=== PATIENT | female | born 1980 | race American Indian/Alaskan Native ===

== ENCOUNTER 2017-06-10 07:50 | Emergency (ER) | payer BC ==
[2017-06-10] MEDS ORDERED: TESSALON PERLES PO ONE (11:01)
[2017-06-10] MEDS ORDERED: LIDOCAINE VISCOUS 2% PO ONE (11:01)
--- NOTE | 2017-06-10 11:24 | XRay Report ---
XRAY CHEST TWO VIEWS: 06/10/17 07:50:00 CLINICAL: Cough. COMPARISON: 07/22/16 FINDINGS: Normal heart and pulmonary vasculature. The lungs are normally expanded and clear.The bones and soft tissues are unremarkable. IMPRESSION: Normal chest.
[2017-06-10] MEDS ORDERED: ZESTRIL PO ONE (12:02)
--- NOTE | 2017-06-10 12:11 | Emergency Department Report ---
- General Chief Complaint: Upper Respiratory Infection Stated Complaint: FLU LIKE SYMPTOMS Time Seen by Provider: 06/10/17 11:01 Source: patient Mode of arrival: Ambulatory Limitations: No Limitations - History of Present Illness Initial Comments: This is a 37-year-old female nontoxic, well nourished in appearance, no acute signs of distress presents to the ED with c/o of productive cough, nasal congestion, rhinorrhea, sore throat, body aches, and frontal sinus pain 3 days. Patient discussed productive cough is yellow mucus production. Patient denies any recent travels, long car rides, recent hospital stays. She denies any calf pain, calf tenderness. Patient denies any chest pain, shortness of breath, difficulty breathing, headache, stiff neck, nausea, vomiting, fever, chills, blurry vision. Patient describes frontal sinus pain as aching and congestion. Patient stated allergies to iodine and shellfish. PMH includes hypertension, asthma, GERD, headaches. Patient stated has been out of her blood pressure medication Lisinopril 20 mg for about 2 months. MD Complaint: cough, sore throat, rhinorrhea, nasal congestion, sinus pain -: days(s) (3) Severity: mild Severity scale (0 -10): 8 Quality: aching Consistency: constant Improves With: nothing Worsens With: nothing Associated Symptoms: headache (frontal sinus pain), rhinorrhea, nasal congestion , cough. denies: fever, chills, myalgias, diaphoresis, sore throat, stiff neck , chest pain, shortness of breath, abdominal pain, nausea, vomiting, diarrhea, dysuria, rash, confusion, right sweats, weight loss, epistaxis, hoarseness, ear pain Treatments Prior to Arrival: none - Related Data Home Medications Medication Instructions Recorded Confirmed Last Taken Aspirin [Aspirin] 81 mg PO BID 07/23/16 07/23/16 3 Days Ago ~07/20/16 Gabapentin [Neurontin] 300 mg PO BID 07/23/16 07/23/16 3 Days Ago ~07/20/16 HYDROcodone/APAP 10-325 [[place] 1 tab PO Q4HR PRN 07/23/16 07/23/16 3 Days Ago 10-325 mg TAB] ~07/20/16 Previous Rx's Medication Instructions Recorded Last Taken Type Lisinopril [Zestril TAB] 20 mg PO QDAY #30 tablet 07/20/16 1 Day Ago Rx ~07/22/16 Amoxicillin/K Clav Tab [Augmentin 1 tab PO Q12HR #20 tab 06/10/17 Unknown Rx 875 mg] Benzonatate [Tessalon Perle] 100 mg PO Q6H PRN #20 capsule 06/10/17 Unknown Rx Lisinopril [Zestril] 20 mg PO DAILY #30 tablet 06/10/17 Unknown Rx Nystas/Diphen/Xyl Visc/Mylanta 30 ml MM Q4H PRN 10 Days ml 06/10/17 Unknown Rx [Magic Mouthwash] Allergies Allergy/AdvReac Type Severity Reaction Status Date / Time Iodine and Iodide Containing Allergy Shortness Verified 12/07/15 14:17 Produc of Breath shellfish derived Allergy Shortness Verified 12/07/15 14:17 of Breath ED Review of Systems ROS: Stated complaint: FLU LIKE SYMPTOMS Other details as noted in HPI Constitutional: denies: chills, fever Eyes: denies: eye pain, eye discharge, vision change ENT: denies: ear pain, throat pain Respiratory: cough. denies: shortness of breath, wheezing Cardiovascular: denies: chest pain, palpitations Endocrine: no symptoms reported Gastrointestinal: denies: abdominal pain, nausea, diarrhea Genitourinary: denies: urgency, dysuria, discharge Musculoskeletal: denies: back pain, joint swelling, arthralgia Skin: denies: rash, lesions Neurological: denies: headache, weakness, paresthesias Psychiatric: denies: anxiety, depression Hematological/Lymphatic: denies: easy bleeding, easy bruising ED Past Medical Hx - Past Medical History Previous Medical History?: Yes Hx Hypertension: Yes Hx Congestive Heart Failure: No Hx Diabetes: No Hx GERD: Yes (NO MEDS) Hx Renal Disease: No Hx Sickle Cell Disease: No Hx Arthritis: Yes Hx Headaches / Migraines: Yes (MIGRAINES) Hx Seizures: No Hx Asthma: Yes Hx COPD: No - Surgical History Past Surgical History?: Yes Additional Surgical History: x 3, knee surgery right - Social History Smoking Status: Never Smoker Substance Use Type: None - Medications Home Medications: Home Medications Medication Instructions Recorded Confirmed Last Taken Type Lisinopril [Zestril TAB] 20 mg PO QDAY #30 tablet 07/20/16 07/23/16 1 Day Ago Rx ~07/22/16 Aspirin [Aspirin] 81 mg PO BID 07/23/16 07/23/16 3 Days Ago History ~07/20/16 Gabapentin [Neurontin] 300 mg PO BID 07/23/16 07/23/16 3 Days Ago History ~07/20/16 HYDROcodone/APAP 10-325 [[facility] 1 tab PO Q4HR PRN 07/23/16 07/23/16 3 Days Ago History 10-325 mg TAB] ~07/20/16 Amoxicillin/K Clav Tab [Augmentin 1 tab PO Q12HR #20 tab 06/10/17 Unknown Rx 875 mg] Benzonatate [Tessalon Perle] 100 mg PO Q6H PRN #20 capsule 06/10/17 Unknown Rx Lisinopril [Zestril] 20 mg PO DAILY #30 tablet 06/10/17 Unknown Rx Nystas/Diphen/Xyl Visc/Mylanta 30 ml MM Q4H PRN 10 Days ml 06/10/17 Unknown Rx [Magic Mouthwash] ED Physical Exam - General Limitations: No Limitations General appearance: alert, in no apparent distress - Head Head exam: Present: atraumatic, normocephalic, normal inspection - Eye Eye exam: Present: normal appearance, PERRL, EOMI. Absent: scleral icterus, conjunctival injection, nystagmus, periorbital swelling, periorbital tenderness Pupils: Present: normal accommodation - ENT ENT exam: Present: mucous membranes moist, TM's normal bilaterally, normal external ear exam - Expanded ENT Exam Expanded Ear exam: Present: normal external inspection Mouth exam: Present: normal external inspection, tongue normal. Absent: drooling, trismus, muffled voice, tongue elevation, laceration Teeth exam: Present: normal inspection Throat exam: Positive: tonsillar erythema, tonsillomegaly (2+), tonsillar exudate, other (Uvula midline. No abscess or swelling noted. ). Negative: R peritonsillar mass, L peritonsillar mass - Neck Neck exam: Present: normal inspection, full ROM. Absent: tenderness, meningismus, lymphadenopathy, thyromegaly - Respiratory Respiratory exam: Present: normal lung sounds bilaterally. Absent: respiratory distress, wheezes, rales, rhonchi, stridor, chest wall tenderness, accessory muscle use, decreased breath sounds, prolonged expiratory - Cardiovascular Cardiovascular Exam: Present: regular rate, normal rhythm, normal heart sounds. Absent: irregular rhythm, systolic murmur, diastolic murmur, rubs, gallop - GI/Abdominal GI/Abdominal exam: Present: soft, normal bowel sounds. Absent: distended, tenderness, guarding, rebound, rigid, diminished bowel sounds - Rectal Rectal exam: Present: deferred - Extremities Exam Extremities exam: Present: normal inspection, full ROM, normal capillary refill. Absent: tenderness, pedal edema, joint swelling, calf tenderness - Back Exam Back exam: Present: normal inspection, full ROM. Absent: tenderness, CVA tenderness (R), CVA tenderness (L), muscle spasm, paraspinal tenderness, vertebral tenderness, rash noted - Neurological Exam Neurological exam: Present: alert, oriented X3, CN II-XII intact, normal gait, reflexes normal - Psychiatric Psychiatric exam: Present: normal affect, normal mood - Skin Skin exam: Present: warm, dry, intact, normal color. Absent: rash - Other Other exam information: Positive frontal sinus tenderness. ED Course Vital Signs 06/10/17 07:59 Temperature 98.5 F Pulse Rate 98 H Respiratory 18 Rate Blood Pressure 174/109 O2 Sat by Pulse 100 Oximetry - Reevaluation(s) Reevaluation #1: 06/10/17 12:11 Patient is speaking in full sentences with no signs of distress noted. ED Medical Decision Making - Medical Decision Making 37-year-old female that presents with upper respiratory infection, sinusitis and tonsillitis with exudate. Patient is stable and was examined by me. Negative influenza swab. Chest x-ray has been obtained and dictated by radiologist with normal exam. Patient is notified of x-ray results with no questions noted by the patient. Patient received viscous lidocaine, Tessalon Perle was placed that his symptoms of cough and sore throat has improved subsided. Patient treated with Augmentin at discharge. Patient received a dose of Lisinopril in the ED as she stated ran out of her medications for 2 months. Patient is also discharge with Lisinopril. Patient was instructed Follow-up with a primary care doctor in 3-5 days or if symptoms worsen and continue return to emergency room as soon as possible. At time time of discharge, the patient does not seem toxic or ill in appearance. No acute signs of distress noted. Patient agrees to discharge treatment plan of care. No further questions noted by the patient. Critical care attestation.: If time is entered above; I have spent that time in minutes in the direct care of this critically ill patient, excluding procedure time. ED Disposition Clinical Impression: Tonsillitis with exudate Upper respiratory infection Qualifiers: URI type: unspecified URI Qualified Code(s): J06.9 - Acute upper respiratory infection, unspecified Sinusitis Qualifiers: Sinusitis location: frontal Chronicity: acute Recurrence: non-recurrent Qualified Code(s): J01.10 - Acute frontal sinusitis, unspecified Hypertension Qualifiers: Hypertension type: unspecified Qualified Code(s): I10 - Essential (primary) hypertension Disposition: - TO HOME OR SELFCARE Is pt being admited?: No Does the pt Need Aspirin: No Condition: Stable Instructions: Upper Respiratory Infection (ED), Tonsillitis (ED), Amoxicillin/ Clavulanate Potassium (By mouth), Benzonatate (By mouth), Hypertension (ED) Additional Instructions: Follow-up with a primary care doctor in 3-5 days or if symptoms worsen and continue return to emergency room as soon as possible. Keep a daily dairy of your blood pressure and present it to your primary care doctor. Rest and increase hydration as much as possible. Prescriptions: Amoxicillin/K Clav Tab [Augmentin 875 mg] 1 tab PO Q12HR #20 tab Benzonatate [Tessalon Perle] 100 mg PO Q6H PRN #20 capsule PRN Reason: Cough Lisinopril [Zestril] 20 mg PO DAILY #30 tablet Nystas/Diphen/Xyl Visc/Mylanta [Magic Mouthwash] 30 ml MM Q4H PRN 10 Days ml PRN Reason: Sore Throat Referrals: VAL BARKER MD [Primary Care Provider] - 3-5 Days PRIMARY CARE, [Referring] - 3-5 Days VAL ROBERTSON MD [Staff Physician] - 3-5 Days [facility] [Outside] - 3-5 Days Forms: Work/School Release Form(ED)
[2017-06-10 13:23] VITALS: BP 174/97
[2017-06-10] MEDS ORDERED: MOTRIN PO ONE ×2 (13:31→13:35)
== END 2017-06-10 13:29 | disposition home or self-care (01) ==
LOC: ED 07:50
DX: J01.10 Acute frontal sinusitis, unspecified (principal); J06.9 Acute upper respiratory infection, unspecified; J03.90 Acute tonsillitis, unspecified; I10 Essential (primary) hypertension; K21.9 Gastro-esophageal reflux disease without esophagitis; G43.909 Migraine, unspecified, not intractable, without status migrainosus; J45.909 Unspecified asthma, uncomplicated; Z79.82 Long term (current) use of aspirin
CPT/HCPCS: 71046; 87116; 87400; 87430; 99283

== ENCOUNTER 2018-06-18 13:48 | Emergency (ER) | payer BC ==
[2018-06-18 13:54] VITALS: BP 151/106
[2018-06-18] MEDS ORDERED: IBUPROFEN PO ONE (14:05)
--- NOTE | 2018-06-18 14:23 | Emergency Department Report ---
Abscess Boil HPI - HPI Chief Complaint: Extremity Injury, Upper Stated Complaint: (L) HAND MIDDLE FINGER INFECTION Time Seen by Provider: 06/18/18 14:01 Duration: 2 Days Location: Upper Extremity Severity: Mild History: Yes Pain, No Fever, No Purulent Drainage, No Numbness, No Foreign Body, No Previous History, No Insect Bite HPI: This is a 38-year-old female nontoxic, well nourished in appearance, no acute signs of distress presents to the ED with c/o of left paronychia and the middle finger. Patient denies any trauma. Denies any posterior drainage. Denies any fever, chills, nausea vomiting has been instructed by. Stated allergies to iodine and shellfish with past medical history of asthma, GERD and arthritis with hypertension. Home Medications: Home Medications Medication Instructions Recorded Confirmed Last Taken Aspirin 81 mg PO BID 07/23/16 07/23/16 3 Days Ago ~07/20/16 Gabapentin [Neurontin] 300 mg PO BID 07/23/16 07/23/16 3 Days Ago ~07/20/16 HYDROcodone/APAP 10-325 [[place] 1 tab PO Q4HR PRN 07/23/16 07/23/16 3 Days Ago 10-325 mg TAB] ~07/20/16 Previous Rx's Medication Instructions Recorded Last Taken Type Lisinopril [Zestril TAB] 20 mg PO QDAY #30 tablet 07/20/16 1 Day Ago Rx ~07/22/16 Amoxicillin/K Clav Tab [Augmentin 1 tab PO Q12HR #20 tab 06/10/17 Unknown Rx 875 mg] Benzonatate [Tessalon Perle] 100 mg PO Q6H PRN #20 capsule 06/10/17 Unknown Rx Lisinopril [Zestril] 20 mg PO DAILY #30 tablet 06/10/17 Unknown Rx Nystas/Diphen/Xyl Visc/Mylanta 30 ml MM Q4H PRN 10 Days ml 06/10/17 Unknown Rx [Magic Mouthwash] Acetaminophen/Codeine [Tylenol 1 tab PO Q6H PRN #12 tab 06/18/18 Unknown Rx /Codeine # 3 tab] Sulfamethoxazole/Trimethoprim 1 each PO BID #14 tablet 06/18/18 Unknown Rx [Bactrim DS TAB] Allergies/Adverse Reactions: Allergies Allergy/AdvReac Type Severity Reaction Status Date / Time Iodine and Iodide Containing Allergy Shortness Verified 06/18/18 13:52 Produc of Breath shellfish derived Allergy Shortness Verified 06/18/18 13:52 of Breath ED Review of Systems ROS: Stated complaint: (L) HAND MIDDLE FINGER INFECTION Other details as noted in HPI Constitutional: denies: chills, fever Eyes: denies: eye pain, eye discharge, vision change ENT: denies: ear pain, throat pain Respiratory: denies: cough, shortness of breath, wheezing Cardiovascular: denies: chest pain, palpitations Endocrine: no symptoms reported Gastrointestinal: denies: abdominal pain, nausea, diarrhea Genitourinary: denies: urgency, dysuria, discharge Musculoskeletal: denies: back pain, joint swelling, arthralgia Skin: denies: rash, lesions Neurological: denies: headache, weakness, paresthesias Psychiatric: denies: anxiety, depression Hematological/Lymphatic: denies: easy bleeding, easy bruising ED Past Medical Hx - Past Medical History Hx Hypertension: Yes Hx Congestive Heart Failure: No Hx Diabetes: No Hx GERD: Yes Hx Renal Disease: No Hx Sickle Cell Disease: No Hx Arthritis: Yes Hx Headaches / Migraines: Yes Hx Seizures: No Hx Asthma: Yes Hx COPD: No - Surgical History Additional Surgical History: x 3, knee surgery right - Social History Smoking Status: Never Smoker Substance Use Type: None - Medications Home Medications: Home Medications Medication Instructions Recorded Confirmed Last Taken Type Lisinopril [Zestril TAB] 20 mg PO QDAY #30 tablet 07/20/16 07/23/16 1 Day Ago Rx ~07/22/16 Aspirin 81 mg PO BID 07/23/16 07/23/16 3 Days Ago History ~07/20/16 Gabapentin [Neurontin] 300 mg PO BID 07/23/16 07/23/16 3 Days Ago History ~07/20/16 HYDROcodone/APAP 10-325 [[place] 1 tab PO Q4HR PRN 07/23/16 07/23/16 3 Days Ago History 10-325 mg TAB] ~07/20/16 Amoxicillin/K Clav Tab [Augmentin 1 tab PO Q12HR #20 tab 06/10/17 Unknown Rx 875 mg] Benzonatate [Tessalon Perle] 100 mg PO Q6H PRN #20 capsule 06/10/17 Unknown Rx Lisinopril [Zestril] 20 mg PO DAILY #30 tablet 06/10/17 Unknown Rx Nystas/Diphen/Xyl Visc/Mylanta 30 ml MM Q4H PRN 10 Days ml 06/10/17 Unknown Rx [Magic Mouthwash] Acetaminophen/Codeine [Tylenol 1 tab PO Q6H PRN #12 tab 06/18/18 Unknown Rx /Codeine # 3 tab] Sulfamethoxazole/Trimethoprim 1 each PO BID #14 tablet 06/18/18 Unknown Rx [Bactrim DS TAB] ED Abscess Boil Physical Exam - Exam General: Vital signs noted. No distress. Alert and acting appropriately. Size: 1 cm Exam: Yes Tenderness, Yes Surrounding Cellulites/Erythema, Yes Normal Neurologic Exam, Yes Normal Circulation, No Fluctuance, No Lymphangitis, No Crepitation, No Heart Murmur I & D Note - I & D Note I & D Note: Under sterile field, I used Betadine to cleanse the area. I then used an 11 blade to separate the cuticle from the nail bed. About 0.5 mL's of purulent drainage has been noted. I did have patient soak finger with soap and warm water. A sterile 4 x 4 with tape has been applied as dressing. Bleeding is under control. Patient tolerated the procedure well with no signs of distress noted. ED Course Vital Signs 06/18/18 13:52 Temperature 98.4 F Pulse Rate 107 H Respiratory 18 Rate Blood Pressure 151/106 O2 Sat by Pulse 97 Oximetry - Reevaluation(s) Reevaluation #1: 06/18/18 14:26 Patient is speaking in full sentences with no signs of distress noted. Critical care attestation.: If time is entered above; I have spent that time in minutes in the direct care of this critically ill patient, excluding procedure time. ED Medical Decision Making - Medical Decision Making This is a 38-year-old female that presents with paronychia. Patient is stable and was examined by me. This is incision and drainage and has been performed and patient tolerated well. A sterile dressing has been applied. Patient was educated on proper wound care. Patient is discharged with Bactrim and Tylenol with codeine and was instructed not to operate any machinery while taking Tylenol with codeine due to drowsiness. Patient was instructed to refer to Follow-up with a primary care doctor in 3-5 days or if symptoms worsen and continue return to emergency room as soon as possible. At time of discharge, the patient does not seem toxic or ill in appearance. No acute signs of distress noted. Patient agrees to discharge treatment plan of care. No further questions noted by the patient. ED Disposition Clinical Impression: Encounter for incision and drainage procedure Paronychia of finger Qualifiers: Laterality: left Qualified Code(s): L03.012 - Cellulitis of left finger Disposition: - TO HOME OR SELFCARE Is pt being admited?: No Does the pt Need Aspirin: No Condition: Stable Instructions: Paronychia (ED), Acetaminophen/Codeine (By mouth) Prescriptions: Acetaminophen/Codeine [Tylenol /Codeine # 3 tab] 1 tab PO Q6H PRN #12 tab PRN Reason: Pain , Severe (7-10) Sulfamethoxazole/Trimethoprim [Bactrim DS TAB] 1 each PO BID #14 tablet Referrals: ORESTES LAMB MD [Staff Physician] - 3-5 Days PRIMARY [facility] [Referring] - 3-5 Days VAL ROBERTSON MD [Staff Physician] - 3-5 Days [facility] [Outside] - 3-5 Days Forms: Work/School Release Form(ED)
== END 2018-06-18 14:40 | disposition home or self-care (01) ==
LOC: ED 13:48
DX: L03.012 Cellulitis of left finger (principal); I10 Essential (primary) hypertension; K21.9 Gastro-esophageal reflux disease without esophagitis; M19.90 Unspecified osteoarthritis, unspecified site; G43.909 Migraine, unspecified, not intractable, without status migrainosus; J45.909 Unspecified asthma, uncomplicated

== ENCOUNTER 2018-07-25 01:27 | Emergency (ER) | payer BC ==
[2018-07-25] MEDS ORDERED: ASPIRIN PO ONE (01:55)
[2018-07-25 02:13] LABS: Mean Corpuscular HGB Conc 32 % (30-34); Mean Corpuscular Volume 87 fl (79-97); Platelet Count 299 K/mm3 (140-440); Red Blood Count 4.27 M/mm3 (3.65-5.03); Red Cell Distribution Width 16.5 % (13.2-15.2)
[2018-07-25 02:17] LABS: Anisocytosis 1+; Basophils % (Manual) 0 % (0.0-1.8); Ovalocytes 1+; Total Cells Counted 100
[2018-07-25 02:30] LABS: BUN/Creatinine Ratio 17; Blood Urea Nitrogen 10 mg/dL (7-17); Calcium 9.1 mg/dL (8.4-10.2); Hemolysis Index 12
[2018-07-25] MEDS ORDERED: ALUM-MAG HYDROX-SIMETH 200-200-20MG/5ML PO ONE (03:02)
[2018-07-25] MEDS ORDERED: LIDOCAINE VISCOUS 2% PO ONE (03:02)
--- NOTE | 2018-07-25 03:06 | Emergency Department Report ---
ED Abdominal Pain HPI - General Chief Complaint: Chest Pain Stated Complaint: CHEST PAIN/ABDOMINAL & BACK PAIN Time Seen by Provider: 07/25/18 02:45 Source: patient, family Mode of arrival: Ambulatory Limitations: No Limitations - History of Present Illness Initial Comments: 38-year-old female presents to ED with complaint of chest and abdominal pain. Patient reports onset approximately 2 hours ago while asleep. Patient states she was awakened from her sleep by periumbilical pain that then radiated up into her chest. She also reports back pain. Patient states she has a history of acid reflux, and a chili dog prior to going to bed. Denies shortness of breath. Reports nausea, no vomiting. Patient states chest pain is resolved, however still has mild abdominal pain. MD Complaint: abdominal pain -: hour(s) (2) Location: periumbilical, epigastric Radiation: back, chest Migration to: no migration Severity: mild Severity scale (0 -10): 10 Quality: other (pt unable to describe) Consistency: now resolved Improves With: nothing Worsens With: nothing Associated Symptoms: nausea. denies: vomiting, fever - Related Data Home Medications Medication Instructions Recorded Confirmed Last Taken Aspirin 81 mg PO BID 07/23/16 07/23/16 3 Days Ago ~07/20/16 Gabapentin [Neurontin] 300 mg PO BID 07/23/16 07/23/16 3 Days Ago ~07/20/16 HYDROcodone/APAP 10-325 [[place] 1 tab PO Q4HR PRN 07/23/16 07/23/16 3 Days Ago 10-325 mg TAB] ~07/20/16 Previous Rx's Medication Instructions Recorded Last Taken Type Lisinopril [Zestril TAB] 20 mg PO QDAY #30 tablet 07/20/16 1 Day Ago Rx ~07/22/16 Amoxicillin/K Clav Tab [Augmentin 1 tab PO Q12HR #20 tab 06/10/17 Unknown Rx 875 mg] Benzonatate [Tessalon Perle] 100 mg PO Q6H PRN #20 capsule 06/10/17 Unknown Rx Lisinopril [Zestril] 20 mg PO DAILY #30 tablet 06/10/17 Unknown Rx Nystas/Diphen/Xyl Visc/Mylanta 30 ml MM Q4H PRN 10 Days ml 06/10/17 Unknown Rx [Magic Mouthwash] Acetaminophen/Codeine [Tylenol 1 tab PO Q6H PRN #12 tab 06/18/18 Unknown Rx /Codeine # 3 tab] Fluconazole [Diflucan TAB] 150 mg PO ONCE #1 tablet 06/18/18 Unknown Rx Sulfamethoxazole/Trimethoprim 1 each PO BID #14 tablet 06/18/18 Unknown Rx [Bactrim DS TAB] Dicyclomine [Bentyl] 20 mg PO QID PRN #20 tablet 07/25/18 Unknown Rx Allergies Allergy/AdvReac Type Severity Reaction Status Date / Time Iodine and Iodide Containing Allergy Shortness Verified 06/18/18 13:52 Produc of Breath shellfish derived Allergy Shortness Verified 06/18/18 13:52 of Breath ED Review of Systems ROS: Stated complaint: CHEST PAIN/ABDOMINAL & BACK PAIN Other details as noted in HPI Comment: All other systems reviewed and negative Constitutional: denies: chills, fever Respiratory: denies: shortness of breath Cardiovascular: chest pain Gastrointestinal: abdominal pain, nausea. denies: vomiting, diarrhea Musculoskeletal: back pain ED Past Medical Hx - Past Medical History Hx Hypertension: Yes Hx Congestive Heart Failure: No Hx Diabetes: No Hx GERD: Yes Hx Renal Disease: No Hx Sickle Cell Disease: No Hx Arthritis: Yes Hx Headaches / Migraines: Yes Hx Seizures: No Hx Asthma: Yes Hx COPD: No - Surgical History Additional Surgical History: x 3, knee surgery right - Social History Smoking Status: Never Smoker Substance Use Type: None - Medications Home Medications: Home Medications Medication Instructions Recorded Confirmed Last Taken Type Lisinopril [Zestril TAB] 20 mg PO QDAY #30 tablet 07/20/16 07/23/16 1 Day Ago Rx ~07/22/16 Aspirin 81 mg PO BID 07/23/16 07/23/16 3 Days Ago History ~07/20/16 Gabapentin [Neurontin] 300 mg PO BID 07/23/16 07/23/16 3 Days Ago History ~07/20/16 HYDROcodone/APAP 10-325 [[place] 1 tab PO Q4HR PRN 07/23/16 07/23/16 3 Days Ago History 10-325 mg TAB] ~07/20/16 Amoxicillin/K Clav Tab [Augmentin 1 tab PO Q12HR #20 tab 06/10/17 Unknown Rx 875 mg] Benzonatate [Tessalon Perle] 100 mg PO Q6H PRN #20 capsule 06/10/17 Unknown Rx Lisinopril [Zestril] 20 mg PO DAILY #30 tablet 06/10/17 Unknown Rx Nystas/Diphen/Xyl Visc/Mylanta 30 ml MM Q4H PRN 10 Days ml 06/10/17 Unknown Rx [Magic Mouthwash] Acetaminophen/Codeine [Tylenol 1 tab PO Q6H PRN #12 tab 06/18/18 Unknown Rx /Codeine # 3 tab] Fluconazole [Diflucan TAB] 150 mg PO ONCE #1 tablet 06/18/18 Unknown Rx Sulfamethoxazole/Trimethoprim 1 each PO BID #14 tablet 06/18/18 Unknown Rx [Bactrim DS TAB] Dicyclomine [Bentyl] 20 mg PO QID PRN #20 tablet 07/25/18 Unknown Rx ED Physical Exam - General Limitations: No Limitations General appearance: alert, in no apparent distress, obese - Head Head exam: Present: atraumatic, normocephalic - Eye Eye exam: Present: normal appearance - ENT ENT exam: Present: mucous membranes moist - Neck Neck exam: Present: normal inspection - Respiratory Respiratory exam: Present: normal lung sounds bilaterally. Absent: respiratory distress - Cardiovascular Cardiovascular Exam: Present: regular rate, normal rhythm - GI/Abdominal GI/Abdominal exam: Present: soft, tenderness (periumbilical). Absent: distended - Extremities Exam Extremities exam: Present: normal inspection - Neurological Exam Neurological exam: Present: alert, oriented X3 - Psychiatric Psychiatric exam: Present: normal affect, normal mood - Skin Skin exam: Present: warm, dry, intact, normal color. Absent: rash ED Course Vital Signs 07/25/18 07/25/18 01:40 03:02 Temperature 98.5 F 98.1 F Pulse Rate 98 H 81 Respiratory 20 20 Rate Blood Pressure 193/110 Blood Pressure 150/101 [Left] O2 Sat by Pulse 98 100 Oximetry ED Medical Decision Making - Lab Data Result diagrams: 07/25/18 01:57 07/25/18 01:57 - EKG Data -: EKG Interpreted by Ga EKG shows normal: sinus rhythm, axis, intervals, QRS complexes, ST-T waves Rate: normal - EKG Data Interpretation: no acute changes - Radiology Data Radiology results: report reviewed, image reviewed - Medical Decision Making 38-year-old female with abdominal pain radiating up into his chest prior to ED arrival. Patient reports she ate a chili dog prior to going to bed. Pain likely GI related. She was given a GI cocktail, states she feels much better at this time. EKG normal, troponin normal 2. Labs unremarkable, including a lipase level which is also normal. Will discharge at this time. Return precautions given. Outpatient follow-up advised. - Differential Diagnosis GERD, pancreatitis, ACS Critical care attestation.: If time is entered above; I have spent that time in minutes in the direct care of this critically ill patient, excluding procedure time. ED Disposition Clinical Impression: Gastritis Disposition: DC-01 TO HOME OR SELFCARE Is pt being admited?: No Condition: Stable Instructions: Gastritis (ED), Gastroesophageal Reflux Disease (ED) Prescriptions: Dicyclomine [Bentyl] 20 mg PO QID PRN #20 tablet PRN Reason: abdominal pain Referrals: VAL BARKER MD [Primary Care Provider] - 3-5 Days Time of Disposition: 04:32
--- NOTE | 2018-07-25 03:28 | XRay Report ---
PROCEDURE: XR CHEST 1V AP TECHNIQUE: A portable AP view of the chest was obtained. HISTORY: CHEST pain COMPARISONS: None FINDINGS: The heart size and vascularity appear normal. The lungs are clear. The bones and soft tissues are unr emarkable. IMPRESSION: Within normal limits.. This document is electronically signed by Kuldeep Minor MD., July 25 2018 03:26:50 AM ET
[2018-07-25 04:04] LABS: Alanine Aminotransferase 14 units/L (7-56); Albumin 3.6 g/dL (3.9-5)
[2018-07-25 04:14] LABS: Bilirubin,Direct < 0.2 mg/dL (0-0.2)
[2018-07-25 05:02] VITALS: BP 115/74
[2018-07-25 05:41] LABS: Bilirubin,Urine NEG (Negative); Blood,Urine NEG (Negative); Color,Urine Yellow (Yellow); Mucus,Urine FEW /HPF; Protein,Urine <15 mg/dL mg/dL (Negative)
== END 2018-07-25 05:05 | disposition home or self-care (01) ==
LOC: ED 01:27 → EEVIPCON 01:27 → ED 05:05
DX: K29.70 Gastritis, unspecified, without bleeding (principal); I10 Essential (primary) hypertension; K21.9 Gastro-esophageal reflux disease without esophagitis; G43.909 Migraine, unspecified, not intractable, without status migrainosus; J45.909 Unspecified asthma, uncomplicated; M19.90 Unspecified osteoarthritis, unspecified site; Z91.041 Radiographic dye allergy status; Z91.013 Allergy to seafood; Z79.82 Long term (current) use of aspirin
CPT/HCPCS: 36415; 71045; 80048; 80076; 81001; 83690; 84484; 84703; 85007; 85025; 93005; 93010; 99284

== ENCOUNTER 2018-08-07 09:56 | Inpatient (IN) | payer BC ==
--- NOTE | 2018-08-07 10:34 | Cat Scan Report ---
CT HEAD WITHOUT CONTRAST: HISTORY: Neurological deficits, stroke. TECHNIQUE: Sequential 2.5mm CT images. COMPARISON: none. FINDINGS: Cerebral Parenchyma: Within normal limits. Cerebellum: Within normal limits. Brainstem: Within normal limits. Ventricles: Normal. Sella: Normal. Extra-axial spaces: Normal. Basal Cisterns: Normal. Intracranial Hemorrhage: None. Midline Shift: None. Calvarium: Normal. Sinuses: Normal. Mastoid Air Cells: Normal. Visualized Orbits: Normal. IMPRESSION: Cranial CT scan within normal limits. These findings were discussed with Dr. Monroe in the emergency department at 1030 hrs.
--- NOTE | 2018-08-07 10:36 | Emergency Department Report ---
ED Neuro Deficit HPI - General Chief Complaint: Chest Pain Stated Complaint: CHEST PAIN/TINGLE Time Seen by Provider: 08/07/18 10:22 Source: patient Mode of arrival: Ambulatory Limitations: No Limitations - History of Present Illness Initial Comments: 38-year-old female with a past medical history of obesity, hypertension, and asthma presents also complains of sudden onset of chest pain, dizziness, and right sided numbness at 9 AM. 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 She states that she got a hard pain in the middle of her chest with shortness of breath. She felt lightheaded and hot but denies nausea, vomiting, or diaphoresis. She then started to have numbness to her right arm and the period. Chest pain has since resolved. She now complains of a global headache and persistent right-sided numbness. Patient took her BP medication at 9 AM as scheduled. - Related Data Home Medications: Home Medications Medication Instructions Recorded Confirmed Last Taken Aspirin 81 mg PO BID 07/23/16 07/23/16 3 Days Ago ~07/20/16 Gabapentin [Neurontin] 300 mg PO BID 07/23/16 07/23/16 3 Days Ago ~07/20/16 HYDROcodone/APAP 10-325 [[place] 1 tab PO Q4HR PRN 07/23/16 07/23/16 3 Days Ago 10-325 mg TAB] ~07/20/16 Previous Rx's Medication Instructions Recorded Last Taken Type Lisinopril [Zestril TAB] 20 mg PO QDAY #30 tablet 07/20/16 1 Day Ago Rx ~07/22/16 Amoxicillin/K Clav Tab [Augmentin 1 tab PO Q12HR #20 tab 06/10/17 Unknown Rx 875 mg] Benzonatate [Tessalon Perle] 100 mg PO Q6H PRN #20 capsule 06/10/17 Unknown Rx Lisinopril [Zestril] 20 mg PO DAILY #30 tablet 06/10/17 Unknown Rx Nystas/Diphen/Xyl Visc/Mylanta 30 ml MM Q4H PRN 10 Days ml 06/10/17 Unknown Rx [Magic Mouthwash] Acetaminophen/Codeine [Tylenol 1 tab PO Q6H PRN #12 tab 06/18/18 Unknown Rx /Codeine # 3 tab] Fluconazole [Diflucan TAB] 150 mg PO ONCE #1 tablet 06/18/18 Unknown Rx Sulfamethoxazole/Trimethoprim 1 each PO BID #14 tablet 06/18/18 Unknown Rx [Bactrim DS TAB] Dicyclomine [Bentyl] 20 mg PO QID PRN #20 tablet 07/25/18 Unknown Rx Allergies/Adverse Reactions: Allergies Allergy/AdvReac Type Severity Reaction Status Date / Time Iodine and Iodide Containing Allergy Shortness Verified 08/07/18 09:56 Produc of Breath shellfish derived Allergy Shortness Verified 08/07/18 09:56 of Breath ED Review of Systems ROS: Stated complaint: CHEST PAIN/TINGLE Other details as noted in HPI Comment: All other systems reviewed and negative ED Past Medical Hx - Past Medical History Previous Medical History?: Yes Hx Hypertension: Yes Hx Congestive Heart Failure: No Hx Diabetes: No Hx GERD: Yes Hx Renal Disease: No Hx Sickle Cell Disease: No Hx Arthritis: Yes Hx Headaches / Migraines: Yes Hx Seizures: No Hx Asthma: Yes Hx COPD: No - Surgical History Past Surgical History?: Yes Additional Surgical History: x 3, knee surgery right - Social History Smoking Status: Never Smoker - Medications Home Medications: Home Medications Medication Instructions Recorded Confirmed Last Taken Type Lisinopril [Zestril TAB] 20 mg PO QDAY #30 tablet 07/20/16 07/23/16 1 Day Ago Rx ~07/22/16 Aspirin 81 mg PO BID 07/23/16 07/23/16 3 Days Ago History ~07/20/16 Gabapentin [Neurontin] 300 mg PO BID 07/23/16 07/23/16 3 Days Ago History ~07/20/16 HYDROcodone/APAP 10-325 [[place] 1 tab PO Q4HR PRN 07/23/16 07/23/16 3 Days Ago History 10-325 mg TAB] ~07/20/16 Amoxicillin/K Clav Tab [Augmentin 1 tab PO Q12HR #20 tab 06/10/17 Unknown Rx 875 mg] Benzonatate [Tessalon Perle] 100 mg PO Q6H PRN #20 capsule 06/10/17 Unknown Rx Lisinopril [Zestril] 20 mg PO DAILY #30 tablet 06/10/17 Unknown Rx Nystas/Diphen/Xyl Visc/Mylanta 30 ml MM Q4H PRN 10 Days ml 01/15/18 Unknown Rx [Magic Mouthwash] Acetaminophen/Codeine [Tylenol 1 tab PO Q6H PRN #12 tab 06/18/18 Unknown Rx /Codeine # 3 tab] Fluconazole [Diflucan TAB] 150 mg PO ONCE #1 tablet 06/18/18 Unknown Rx Sulfamethoxazole/Trimethoprim 1 each PO BID #14 tablet 06/18/18 Unknown Rx [Bactrim DS TAB] Dicyclomine [Bentyl] 20 mg PO QID PRN #20 tablet 07/25/18 Unknown Rx ED Neuro Physical Exam - General Limitations: No Limitations Suspected Stroke: Yes - NIHSS Assessment Interval: Baseline 1a. Level of Consciousness: alert/keenly responsive 1b. LOC Questions: answers both correctly 1c. LOC Commands: performs tasks correctly 2. Best Gaze: normal 3. Visual: no visual loss 4. Facial Palsy: normal symmetrical movement 5b. Motor Arm Right: no drift 5a. Motor Arm Left: no drift 6a. Motor Leg Left: no drift 6b. Motor Leg Right: no drift 7. Limb Ataxia: absent 8. Sensory: mild/moderate sensory loss (right side) 9. Best Language: no aphasia 10. Dysarthria: normal 11. Extinction/Inattention: no abnormality Total Score: 1 Stroke Severity: Minor Stroke - Other Other exam information: General: No limitations, patient is alert in no acute distress Head exam: Atraumatic, normocephalic Eyes exam: Normal appearance, pupils equal reactive to light, extraocular movements intact ENT: Moist mucous membrane, normal oropharynx Neck exam: Normal inspection, full range of motion, no meningismus nontender Respiratory exam: Clear to auscultation bilateral, no wheezes, rales, crackles Cardiovascular: Normal rate and rhythm, normal heart sounds Abdomen: Soft, nondistended, and nontender, with normal bowel sounds, no rebound, or guarding Extremity: Full range of motion normal inspection no deformity Back: Normal Inspection, full range of motion, no tenderness Neurologic: Alert, oriented x3, cranial nerves intact, see NIHSS scale Psychiatric: normal affect, normal mood Skin: Warm, dry, intact ED Course Vital Signs 08/07/18 10:07 Temperature 98.1 F Pulse Rate 100 H Respiratory 18 Rate Blood Pressure 164/102 O2 Sat by Pulse 100 Oximetry - Reevaluation(s) Reevaluation #1: 08/07/18 11:04 pt offered tpa but declined. - Consultations Consultation #1: 08/07/18 10:40 case d/w Dr Funk neuro, will evaluate pt - Lab Data Result diagrams: 08/07/18 10:40 08/07/18 10:40 Lab Results 08/07/18 08/07/18 08/07/18 Range/Units 10:40 10:40 10:40 WBC 5.2 (4.5-11.0) K/mm3 RBC 4.18 (3.65-5.03) M/mm3 Hgb 11.9 (10.1-14.3) gm/dl Hct 37.2 (30.3-42.9) % MCV 89 (79-97) fl MCH 28 (28-32) pg MCHC 32 (30-34) % RDW 16.4 H (13.2-15.2) % Plt Count 326 (140-440) K/mm3 Lymph % (Auto) 43.0 H (13.4-35.0) % [place] % (Auto) 8.7 H (0.0-7.3) % Eos % (Auto) 1.3 (0.0-4.3) % Baso % (Auto) 0.4 (0.0-1.8) % Lymph # 2.3 (1.2-5.4) K/mm3 [place] # 0.5 (0.0-0.8) K/mm3 Eos # 0.1 (0.0-0.4) K/mm3 Baso # 0.0 (0.0-0.1) K/mm3 Seg Neutrophils % 46.6 (40.0-70.0) % Seg Neutrophils # 2.4 (1.8-7.7) K/mm3 PT 12.1 L (12.2-14.9) Sec. INR 0.85 L (0.87-1.13) APTT 23.4 L (24.2-36.6) Sec. Thrombin Time (15.1-19.6) Sec. Sodium 141 (137-145) mmol/L Potassium 4.1 (3.6-5.0) mmol/L Chloride 106.7 (98-107) mmol/L Carbon Dioxide 24 (22-30) mmol/L Anion Gap 14 mmol/L BUN 8 (7-17) mg/dL Creatinine 0.6 L (0.7-1.2) mg/dL Estimated GFR > 60 ml/min BUN/Creatinine Ratio 13 % Glucose 119 H (65-100) mg/dL Calcium 9.1 (8.4-10.2) mg/dL Troponin T < 0.010 (0.00-0.029) ng/mL 08/07/18 Range/Units 10:40 WBC (4.5-11.0) K/mm3 RBC (3.65-5.03) M/mm3 Hgb (10.1-14.3) gm/dl Hct (30.3-42.9) % MCV (79-97) fl MCH (28-32) pg MCHC (30-34) % RDW (13.2-15.2) % Plt Count (140-440) K/mm3 Lymph % (Auto) (13.4-35.0) % [place] % (Auto) (0.0-7.3) % Eos % (Auto) (0.0-4.3) % Baso % (Auto) (0.0-1.8) % Lymph # (1.2-5.4) K/mm3 [place] # (0.0-0.8) K/mm3 Eos # (0.0-0.4) K/mm3 Baso # (0.0-0.1) K/mm3 Seg Neutrophils % (40.0-70.0) % Seg Neutrophils # (1.8-7.7) K/mm3 PT (12.2-14.9) Sec. INR (0.87-1.13) APTT (24.2-36.6) Sec. Thrombin Time 15.7 (15.1-19.6) Sec. Sodium (137-145) mmol/L Potassium (3.6-5.0) mmol/L Chloride (98-107) mmol/L Carbon Dioxide (22-30) mmol/L Anion Gap mmol/L BUN (7-17) mg/dL Creatinine (0.7-1.2) mg/dL Estimated GFR ml/min BUN/Creatinine Ratio % Glucose (65-100) mg/dL Calcium (8.4-10.2) mg/dL Troponin T (0.00-0.029) ng/mL - EKG Data -: EKG Interpreted by Me EKG shows normal: sinus rhythm, axis (qrs8), QRS complexes (qrsd 86), ST-T waves (no stemi/t inv) Rate: normal (98) - Radiology Data Radiology results: report reviewed CT HEAD WITHOUT CONTRAST: HISTORY: Neurological deficits, stroke. TECHNIQUE: Sequential 2.5mm CT images. COMPARISON: none. FINDINGS: Cerebral Parenchyma: Within normal limits. Cerebellum: Within normal limits. Brainstem: Within normal limits. Ventricles: Normal. Sella: Normal. Extra-axial spaces: Normal. Basal Cisterns: Normal. Intracranial Hemorrhage: None. Midline Shift: None. Calvarium: Normal. Sinuses: Normal. Mastoid Air Cells: Normal. Visualized Orbits: Normal. IMPRESSION: Cranial CT scan within normal limits. - Medical Decision Making pt has allergy to shellfish but not to IV dye pt declined tpa for low stroke scale cva vs complex migraine asa given neuro consult admission to hospitalist - Differential Diagnosis ICH, CVA, AR, unstable angina, anxiety, complex migraine - Thrombolytic Inclusion/Exclusion Thrombolytic Inclusion Criteria: Ischemic Stroke Onset< 3h Critical Care Time: No Critical care attestation.: If time is entered above; I have spent that time in minutes in the direct care of this critically ill patient, excluding procedure time. ED Disposition Clinical Impression: Right sided numbness, Headache, HTN (hypertension), Obesity, Chest pain Disposition: OP ADMIT IP TO THIS HOSP Is pt being admited?: Yes Does the pt Need Aspirin: Yes Condition: Stable Instructions: Chest Pain (ED) Referrals: YANNICK WOLF MD [Primary Care Provider] - 3-5 Days Time of Disposition: 11:05 (Dr Ramirez/hosp)
[2018-08-07 10:48] LABS: Basophils % (Auto) 0.4 % (0.0-1.8); Eosinophils # (Auto) 0.1 K/mm3 (0.0-0.4); Eosinophils % (Auto) 1.3 % (0.0-4.3); Hematocrit 37.2 % (30.3-42.9); Hemoglobin 11.9 gm/dl (10.1-14.3); Lymphocytes # (Auto) 2.3 K/mm3 (1.2-5.4); Mean Corpuscular HGB Conc 32 % (30-34); Mean Corpuscular Volume 89 fl (79-97); Monocytes # (Auto) 0.5 K/mm3 (0.0-0.8); Monocytes % (Auto) 8.7 % (0.0-7.3); Platelet Count 326 K/mm3 (140-440); Red Blood Count 4.18 M/mm3 (3.65-5.03); Red Cell Distribution Width 16.4 % (13.2-15.2)
[2018-08-07 10:58] LABS: INR 0.85 (0.87-1.13); Partial Thromboplastin Time 23.4 Sec. (24.2-36.6)
[2018-08-07 11:04] LABS: BUN/Creatinine Ratio 13; Blood Urea Nitrogen 8 mg/dL (7-17); Calcium 9.1 mg/dL (8.4-10.2); Hemolysis Index 11
[2018-08-07] MEDS ORDERED: ASPIRIN PO ONE (11:05)
[2018-08-07] MEDS ORDERED: DILAUDID IV PRN (13:32)
[2018-08-07] MEDS ORDERED: DILAUDID ONE (13:41)
[2018-08-07] MEDS ORDERED: ASPIRIN ONE (16:10)
[2018-08-07] MEDS ORDERED: TYLENOL PO PRN ×2 (21:15→23:51)
[2018-08-07] MEDS ORDERED: IBUPROFEN PO PRN (21:26)
[2018-08-07] MEDS ORDERED: SODIUM CHLORIDE FLUSH SYRINGE 10 ML IV SCH (23:45)
[2018-08-07] MEDS ORDERED: SODIUM CHLORIDE FLUSH SYRINGE 10 ML IV PRN (23:51)
[2018-08-07] MEDS ORDERED: ZOFRAN IV PRN (23:51)
[2018-08-07] MEDS ORDERED: PERCOCET 5/325 PO PRN (23:51)
--- NOTE | 2018-08-07 23:51 | Event Note ---
Date: 08/07/18 See dictated H/p in the reports Chest pain r/o OR Rt side numbness -Has resolved MRI ordered
[2018-08-08] MEDS ORDERED: APRESOLINE IV PRN
[2018-08-08 04:04] LABS: Basophils % (Auto) 0.7 % (0.0-1.8); Eosinophils # (Auto) 0.1 K/mm3 (0.0-0.4); Eosinophils % (Auto) 1.5 % (0.0-4.3); Hematocrit 35.5 % (30.3-42.9); Hemoglobin 11.6 gm/dl (10.1-14.3); Lymphocytes # (Auto) 2.5 K/mm3 (1.2-5.4); Mean Corpuscular HGB Conc 33 % (30-34); Mean Corpuscular Volume 89 fl (79-97); Monocytes # (Auto) 0.5 K/mm3 (0.0-0.8); Monocytes % (Auto) 10.7 % (0.0-7.3); Platelet Count 306 K/mm3 (140-440); Red Blood Count 4.01 M/mm3 (3.65-5.03); Red Cell Distribution Width 16.8 % (13.2-15.2)
[2018-08-08 06:04] LABS: Alanine Aminotransferase 13 units/L (7-56); Albumin 3.6 g/dL (3.9-5); BUN/Creatinine Ratio 15; Blood Urea Nitrogen 9 mg/dL (7-17); Calcium 8.9 mg/dL (8.4-10.2); Hemolysis Index 2
--- NOTE | 2018-08-08 06:54 | History and Physical Report ---
CHIEF COMPLAINT: 1. Left-sided chest pain. 2. Right arm numbness since 9:00 a.m. HISTORY OF PRESENT ILLNESS: A 38-year-old female with history of hypertension, comes in for left-sided chest pain, nonradiating. No diaphoresis, no shortness of breath. The pain is sharp, about 8 on a scale of 1-10, which has resolved by the time of my examination. Also right arm numbness, which is also resolved by the time of my examination. No shortness of breath, but has severe headache for which she is asking medications. Headache is about a size 6 on a scale of 1-10. PAST MEDICAL HISTORY: As mentioned, is significant for hypertension, GERD, arthritis, asthma. PAST SURGICAL HISTORY: x 3, right knee surgery. SOCIAL HISTORY: Does not smoke. FAMILY HISTORY: Hypertension. CURRENT MEDICATIONS: Aspirin 81 mg twice a day and lisinopril 20 mg once a day. REVIEW OF SYSTEMS: Significant for right arm numbness, which has resolved and chest pain, which has also nearly resolved. Also, headache. Otherwise, review of systems negative. PHYSICAL EXAMINATION: GENERAL: A middle-aged female, cooperative during examination. VITAL SIGNS: Blood pressure is 128/78. Temperature is 98.2. Pulse is 98. Respirations are 16. HEENT: Unremarkable. Pupils equal and reactive. NECK: Supple, no lymphadenopathy, no thyromegaly. LUNGS: Clear to auscultation and percussion. Good air entry. CARDIOVASCULAR SYSTEM: S1, S2 heard. No gallop, no murmur, no rub. Apical impulse in left fifth intercostal space in midclavicular line. ABDOMEN: Soft and benign. No hepatosplenomegaly. No guarding, no rigidity. Hernial orifices are normal. EXTREMITIES: Good pedal pulses. No pedal edema. CENTRAL NERVOUS SYSTEM: Alert and oriented x 4, nonfocal exam. Sensation normal on the right side. All cranial nerves are normal. EXTREMITIES: Good pedal pulses. No pedal edema. LABORATORY DATA: Significant for white count of 5200, H and H is 11.9 and 37.2, platelet count is 326,000. Electrolytes are normal. Troponin is less than 0.010. DIAGNOSTIC DATA: EKG shows normal sinus rhythm, no acute ST-T wave changes. Heart rate of [address] of the head was normal. ASSESSMENT AND PLAN: 1. Chest pain, rule out myocardial infarction, chest pain protocol. Lexiscan ordered for the morning. Serial troponins. 2. Hypertension. Continue antihypertensives. 3. Transient ischemic attack involving the right-sided numbness. Will get MRI and echocardiogram. Also, MRA and carotid duplex scan. Neuro consult was not ordered. Will defer to primary care. Symptoms of numbness have resolved since admission. 4. Deep venous thrombosis prophylaxis, Lovenox 40 mg subcutaneous daily. [facility]# [id number] VSM/NTS
[2018-08-08] MEDS ORDERED: LEXISCAN IV ONE ×2 (09:04)
[2018-08-08] MEDS ORDERED: APRESOLINE PO SCH (10:00)
[2018-08-08] MEDS ORDERED: PEPCID PO SCH (10:00)
[2018-08-08] MEDS ORDERED: FEOSOL PO SCH (10:00)
[2018-08-08] MEDS ORDERED: NORVASC PO SCH (10:00)
[2018-08-08] MEDS ORDERED: NON-FORMULARY (Ferrous Sulfate [Ferrous Sulfate] 325 MG) PO SCH (10:00)
[2018-08-08] MEDS ORDERED: ASPIRIN PO SCH (10:00)
[2018-08-08 10:01] LABS: Chol/HDL Ratio 2.39 %
[2018-08-08 13:58] VITALS: BP 173/111
--- NOTE | 2018-08-08 14:00 | Magnetic Resonance Report ---
MRI BRAIN WITHOUT CONTRAST INDICATION: Right-sided numbness. COMPARISON: Yesterday's head CT. FINDINGS: Noncontrast multiplanar and multisequence MRI of the brain demonstrates normal ventricles and sulci without acute infarct, hemorrhage, mass effect or midline shift. No abnormal extra-axial masses or fluid collections. Normal major intracranial vascular flow voids. Normal posterior fossa structures with symmetric seventh and eighth nerve complexes. Symmetric, grossly unremarkable eye globes. Slight left posterior ethmoid air cell opacification. Clear remainder aerated paranasal sinuses and mastoid air cells. Partially empty sella. Normal remainder midline structures without evidence of Chiari malformation. CONCLUSION: No acute intracranial MRI abnormality with few incidental findings, as above. Thank you for the opportunity to participate in this patient's care.
--- NOTE | 2018-08-08 14:35 | Discharge Summary ---
Providers - Providers Date of Admission: 08/07/18 11:10 Attending physician: GUS DAVID MD 08/08/18 10:29 Occupational Therapy Evaluate and Treat [CONS] Routine Comment: Reason For Exam: TIA Physical Therapy Evaluation and Treat [CONS] Routine Comment: Reason For Exam: TIA [facility] Reason for admission: chest pain, right-sided numbness Condition: Stable Pertinent studies: MRI negative for acute intracranial finding Stress is negative for acute ischemic changes Echo normal ejection fraction not to have septal defect Hospital course: 38-year-old -[place] female with past medical history significant for hypertension, 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 Cardiac enzymes are negative, MRI negative for acute intracranial finding. Patient did have any chest pain or any other complaints. Patient is hemodynamically stable. Patient has hypertension and taking amlodipine and hydralazine at home and advised to continue that. Patient is stable for discharge home. Disposition: DC- TO HOME OR SELFCARE Time spent for discharge: 32 minutes - Discharge Diagnoses (1) Chest pain Status: Acute Comment: Costochondritis (2) HTN (hypertension) Status: Chronic Qualifiers: Hypertension type: essential hypertension Qualified Code(s): I10 - Esse ntial (primary) hypertension (3) Obesity Status: Chronic Qualifiers: Obesity classification: adult class 3 (BMI >= 40) Body mass index: BMI 45.0-49.9 (4) Right sided numbness Status: Acute Core Measure Documentation - Palliative Care Palliative Care/ Comfort Measures: Not Applicable - Core Measures Any of the following diagnoses?: none Exam - Physical Exam Narrative exam: Not in cardiopulmonary distress. The patient is morbidly obese Vital signs as documented. Head exam is unremarkable. No scleral icterus . Neck is without jugular venous distension, thyromegaly, or carotid bruits. Lungs are clear to auscultation. Cardiac exam reveals regular rate and Rhythm. Abdominal exam reveals normal bowel sounds, no masses, no organomegaly and no aortic enlargement. Extremities are nonedematous and both femoral and pedal pulses are normal. RN WOUND: Alert and oriented 3. No focal weakness. - Constitutional Vitals: Temp Pulse Resp BP Pulse Ox 97.7 F 90 18 173/111 98 08/08/18 13:55 08/08/18 13:55 08/08/18 13:55 08/08/18 13:55 08/08/18 10:00 Plan Activity: no restrictions Weight Bearing Status: Full Weight Bearing Diet: low salt, low carbohydrate Follow up with: SILVIA WOODDOUGLAS MD MARIUSZ [Primary Care Provider] - 3-5 Days Forms: Work/School Release Form(ED), Work/School Excuse Out Patient, Work/School Release Form
--- NOTE | 2018-08-08 14:50 | Vascular Lab Report ---
EXAM: VL CAROTID DUPLEX BILAT HISTORY: TIA TECHNIQUE: The carotid arteries and vertebral arteries were interrogated with a high-frequency linear transducer, employing grayscale imaging, duplex Doppler and color flow Doppler imaging. COMPARISON: None available. FINDINGS: The common carotid arteries and carotid bulbs appear widely patent on grayscale imaging. There is mil d atherosclerotic mural plaque formation in the carotid bulb, without evidence for significant lumina l encroachment/narrowing seen. Carotid velocities are as follows: RIGHT LEFT Distal CCA: 105 cm/s 95 cm/s Proximal ICA: 65 cm/s 99 cm/s ICA/CCA ratio: 0.62 1.04 The above findings constitute less than 15%; no hemodynamically significant ICA origin stenosis. There is no hemodynamically significant ECA stenosis. Both vertebral arteries are patent and demonstrate antegrade blood flow and normal Doppler waveforms. IMPRESSION: 1. Mild atherosclerotic plaque seen at the carotid bifurcations. 2. Estimated less than 15% bilateral ICA origin stenoses; no hemodynamically significant ICA or ECA stenosis. 3. Patent vertebral arteries with antegrade blood flow. This document is electronically signed by Hillary Epperson MD., August 08 2018 02:48:27 PM ET
--- NOTE | 2018-08-08 18:50 | Treadmill Report ---
INDICATION: Chest pain. ORDERING PHYSICIAN: Deidre Ramirez MD FINDINGS: The left ventricular cavity is normal in size. There is no scintigraphic evidence of myocardial ischemia. The left ventricular ejection fraction is measured at 67%. There is normal wall motion and wall thickening on gated imaging. IMPRESSION: Normal perfusion scan. This is a low-risk study associated with 1-year cardiovascular event rate of less than 1%. JOB# [id number] NILAM/GENEVA
[2018-08-08] MEDS ORDERED: LOVENOX SUB-Q SCH (22:00)
== END 2018-08-08 17:27 | disposition home or self-care (01) | DRG 206 ==
LOC: ED 09:56 → 4A 11:10
PROVIDERS: ADMIT Internal Medicine; ATTEND Internal Medicine
DX: M94.0 Chondrocostal junction syndrome [Tietze] (principal); Z68.42 Body mass index [BMI] 45.0-49.9, adult; R20.0 Anesthesia of skin; I10 Essential (primary) hypertension; E66.9 Obesity, unspecified; J45.909 Unspecified asthma, uncomplicated; K21.9 Gastro-esophageal reflux disease without esophagitis; M19.90 Unspecified osteoarthritis, unspecified site; G43.909 Migraine, unspecified, not intractable, without status migrainosus; Z79.82 Long term (current) use of aspirin; Z91.041 Radiographic dye allergy status; Z91.013 Allergy to seafood
CPT/HCPCS: 36415; 70450; 70551; 78452; 80048; 80053; 80061; 83036; 84484; 85025; 85610; 85670; 85730; 87116; 93005; 93010; 93017; 93306; 93880; G0378; A9502; J0360; J1170; J2785

== ENCOUNTER 2018-10-14 07:31 | Outpatient (CLI) | payer BC ==
--- NOTE | 2018-10-14 15:40 | Mammography Report ---
BILATERAL DIGITAL SCREENING MAMMOGRAM with CAD: 10/14/18 CLINICAL: Routine screening. COMPARISON:None available. However, a prior mammogram was apparently done at [facility]. FINDINGS: The breasts are heterogeneously dense, which may obscure small masses. Bilateral asymmetries require comparison with a prior mammogram or additional imaging.No architectural distortion or suspicious calcifications. IMPRESSION: Bilateral asymmetries requiring further evaluation. BI-RADS CATEGORY: 0 -- Additional Evaluation Required RECOMMENDATION: Comparison with a previous mammogram. We will attempt to obtain a prior mammogram for comparison. If we not obtain a prior mammogram within 30 days, a revised report will be issued recommending a recall for additional imaging. Please be advised that the patient should not schedule an appointment for return until adequate time (at least 2 weeks) has passed for us to obtain the prior mammogram. COMMENT: 1. Dense breast tissue, i.e., adenosis, fibrocystic changes, etc., may obscure an underlying neoplasm. 2. Approximately 10% of cancers are not detected with mammography. 3. A negative mammography report should not delay biopsy if a clinically suspicious mass is present. COMMENT: Patient follow-up letters are generated via our [employer] application.
== END 2018-10-14 07:32 | disposition home or self-care (01) ==
LOC: MAMMO 07:31
PROVIDERS: ATTEND Obstetrics & Gynecology
DX: Z12.31 Encounter for screening mammogram for malignant neoplasm of breast (principal); I10 Essential (primary) hypertension; J45.909 Unspecified asthma, uncomplicated; E66.9 Obesity, unspecified; K21.9 Gastro-esophageal reflux disease without esophagitis
CPT/HCPCS: 77067

== ENCOUNTER 2018-10-28 07:18 | Outpatient (CLI) | payer BC ==
--- NOTE | 2018-10-28 13:04 | Mammography Report ---
RIGHT DIGITAL DIAGNOSTIC MAMMOGRAM : 10/28/18 07:18:00 CLINICAL: Recalled for asymmetries. COMPARISON:10/14/18 screening FINDINGS: Additional right mammographic views were performed and are negative. IMPRESSION: No mammographic evidence of malignancy. BI-RADS CATEGORY: 1 -- Negative RECOMMENDATION: Routine mammographic screening in one year. COMMENT: 1. Dense breast tissue, i.e., adenosis, fibrocystic changes, etc., may obscure an underlying neoplasm. 2. Approximately 10% of cancers are not detected with mammography. 3. A negative mammography report should not delay biopsy if a clinically suspicious mass is present. COMMENT: Patient follow-up letters are generated via our [employer] application.
== END 2018-10-28 07:19 | disposition home or self-care (01) ==
LOC: MAMMO 07:18
PROVIDERS: ATTEND Obstetrics & Gynecology
DX: R92.8 Other abnormal and inconclusive findings on diagnostic imaging of breast (principal); I10 Essential (primary) hypertension; J45.909 Unspecified asthma, uncomplicated; K21.9 Gastro-esophageal reflux disease without esophagitis; E66.9 Obesity, unspecified

== ENCOUNTER 2018-12-31 08:25 | Emergency (ER) | payer BC ==
--- NOTE | 2018-12-31 09:11 | Emergency Department Report ---
HPI - General Chief Complaint: Vaginal Bleeding Time Seen by Provider: 12/31/18 09:11 - HPI HPI: PT IS A PLEASANT 38 YO FEMALE WHO COMES TO ER WITH VAG BLEED FOR 2 WEEKS. PRIOR TO THAT SHE HAD SOME SPOTTING WHICH STOPPED. SHE HAS IRREGULAR PERIODS. SHE HAS NOT BEEN TO OBGYN FOR THIS. SHE HAS HAD TUBAL LIGATION. NO N/V/D. NO FEVER OR CHILLS. NO DYSURIA. SHE DID SEE OBGYN THIS YEAR FOR PAP AND ALL WAS OK. PT IS ON ANTIBIOTICS FOR RECENT DX UTI. SHE DENIES FEVER/CHILLS/DYSURIA PMH HTN ASTHMA PSH CSEC MOM DEC BREAST CA DAD A/W RX HCTZ HYDRAL ANTIBIOTICS CIG ETOH NO DRUGS ED Past Medical Hx - Past Medical History Previous Medical History?: Yes Hx Hypertension: Yes Hx Heart Attack/AMI: No Hx Congestive Heart Failure: No Hx Diabetes: No Hx Deep Vein Thrombosis: No Hx Pulmonary Embolism: No Hx GERD: Yes Hx Renal Disease: No Hx Sickle Cell Disease: No Hx Arthritis: Yes Hx Headaches / Migraines: Yes Hx Seizures: No Hx Asthma: Yes Hx COPD: No Hx Tuberculosis: No - Surgical History Past Surgical History?: Yes Hx Coronary Stent: No Hx Pacemaker: No Hx Internal Defibrillator: No Additional Surgical History: x 3, knee surgery right - Social History Smoking Status: Never Smoker Substance Use Type: None - Medications Home Medications: Home Medications Medication Instructions Recorded Confirmed Last Taken Type Ferrous Sulfate 325 mg PO DAILY 08/07/18 08/07/18 08/07/18 History amLODIPine [Norvasc] 10 mg PO DAILY 08/07/18 08/07/18 08/07/18 History hydrALAZINE [Apresoline TAB] 25 mg PO DAILY 08/07/18 08/07/18 08/07/18 History ED Review of Systems ROS: Stated complaint: DIZZINESS/BLEEDING Other details as noted in HPI Comment: All other systems reviewed and negative Physical Exam - Physical Exam Vital Signs: Vital Signs 12/31/18 08:50 Temperature 98.4 F Pulse Rate 85 Respiratory 18 Rate Blood Pressure 148/99 O2 Sat by Pulse 98 Oximetry Physical Exam: ALERT AND ORIENTED AMBULATORY S1S2 LUNGS CTA ABD SNT NO CVA TENDERNESS ED Course Vital Signs 12/31/18 08:50 Temperature 98.4 F Pulse Rate 85 Respiratory 18 Rate Blood Pressure 148/99 O2 Sat by Pulse 98 Oximetry - Reevaluation(s) Reevaluation #1: 12/31/18 URINE HAS NOT BEEN SENT PER ORDER PT ON ANTIBIOTICS WILL FOLLOW UP WITH PCP FOR RECHECK NO DYSURIA NO FEVER NO CVA TENDERNESS ED Medical Decision Making - Lab Data Result diagrams: 12/31/18 09:28 12/31/18 09:28 - Radiology Data Radiology results: report reviewed, image reviewed - Medical Decision Making Lab Results 12/31/18 12/31/18 12/31/18 Range/Units 09:28 09:28 10:49 WBC 4.8 (4.5-11.0) K/mm3 RBC 4.15 (3.65-5.03) M/mm3 Hgb 12.3 (10.1-14.3) gm/dl Hct 37.2 (30.3-42.9) % MCV 90 (79-97) fl MCH 30 (28-32) pg MCHC 33 (30-34) % RDW 15.3 H (13.2-15.2) % Plt Count 296 (140-440) K/mm3 Sodium 140 (137-145) mmol/L Potassium 4.7 (3.6-5.0) mmol/L Chloride 103.2 (98-107) mmol/L Carbon Dioxide 16 L (22-30) mmol/L Anion Gap 26 mmol/L BUN 9 (7-17) mg/dL Creatinine 0.7 (0.7-1.2) mg/dL Estimated GFR > 60 ml/min BUN/Creatinine Ratio 13 % Glucose 109 H (65-100) mg/dL Calcium 9.6 (8.4-10.2) mg/dL Total Bilirubin 0.70 (0.1-1.2) mg/dL AST 29 (5-40) units/L ALT 22 (7-56) units/L Alkaline Phosphatase 48 (35-129) units/L Total Protein 7.8 (6.3-8.2) g/dL Albumin 4.2 (3.9-5) g/dL Albumin/Globulin Ratio 1.2 % HCG, Quant < 0.500 (0-4) mIU/mL Vital Signs 12/31/18 08:50 Temperature 98.4 F Pulse Rate 85 Respiratory 18 Rate Blood Pressure 148/99 O2 Sat by Pulse 98 Oximetry LABS NOTED HGB NORMAL WBC NORMAL CR NORMAL US WITHOUT FIBROID VSS NON TOXIC AFEBRILE AMBULATORY AND TAKING PO I'VE REVIEWED ALL OF THIS WITH PT AND ADVISED FOLLOW UP WITH PCP TO BE SURE HER URINE HAS CLEARED AT THE COMPLETION OF HER ANTIBIOTICS AND FOLLOW UP WITH HER OBGYN TO DISCUSS DUB. PT VERBALIZES UNDERSTANDING. - Differential Diagnosis DUB; RO PREG; RO FIBROIDS Critical care attestation.: If time is entered above; I have spent that time in minutes in the direct care of this critically ill patient, excluding procedure time. ED Disposition Clinical Impression: DUB (dysfunctional uterine bleeding) Disposition: DC-01 TO HOME OR SELFCARE Is pt being admited?: No Does the pt Need Aspirin: No Condition: Stable Instructions: Dysfunctional Uterine Bleeding (ED), Menorrhagia (ED) Additional Instructions: FOLLOW UP WITH OBGYN REFERRAL BELOW Referrals: FITZ SANTO MD [Staff Physician] - 3-5 Days Time of Disposition: 12:27
[2018-12-31 09:41] LABS: Hematocrit 37.2 % (30.3-42.9); Hemoglobin 12.3 gm/dl (10.1-14.3); Mean Corpuscular HGB Conc 33 % (30-34); Mean Corpuscular Volume 90 fl (79-97); Platelet Count 296 K/mm3 (140-440); Red Blood Count 4.15 M/mm3 (3.65-5.03); Red Cell Distribution Width 15.3 % (13.2-15.2)
[2018-12-31 10:41] LABS: Alanine Aminotransferase 22 units/L (7-56); Albumin 4.2 g/dL (3.9-5); BUN/Creatinine Ratio 13; Blood Urea Nitrogen 9 mg/dL (7-17); Calcium 9.6 mg/dL (8.4-10.2); Hemolysis Index 77
--- NOTE | 2018-12-31 11:33 | Ultrasound Report ---
ULTRASOUND PELVIC COMPLETE ULTRASOUND TRANSVAGINAL HISTORY: Vaginal bleeding. Right pelvic pain. TECHNIQUE: Transabdominal and transvaginal ultrasound with color Doppler imaging. COMPARISON: None. FINDINGS: The images are somewhat limited secondary to body habitus. The uterus is anteverted. The uterus measures 13.3 x 5.3 x 7.5 cm. No obvious uterine mass is identif ied although the images are limited. The endometrial stripe measures 5.4 mm. No obvious endometrial a bnormality. The cervix is obscured. The right ovary measures 2.1 x 3.1 x 3.5 cm and contains a 2.4 cm simple cyst. The left ovary measures 2.4 x 4.2 x 1.6 cm. No focal abnormality. No pelvic fluid collection. IMPRESSION: Mildly enlarged uterus but no obvious uterine fibroid disease on ultrasound. The endometrium measures 5.4 mm. 2.4 cm right ovarian cyst. Signer Name: Ellis Hewitt Jr, MD Signed: 12/31/2018 11:28 AM Workstation Name: [id number]
[2018-12-31 13:32] VITALS: BP 155/108
== END 2018-12-31 13:31 | disposition home or self-care (01) ==
LOC: ED 08:25
DX: N93.8 Other specified abnormal uterine and vaginal bleeding (principal); I10 Essential (primary) hypertension; K21.9 Gastro-esophageal reflux disease without esophagitis; M19.90 Unspecified osteoarthritis, unspecified site; G43.909 Migraine, unspecified, not intractable, without status migrainosus; J45.909 Unspecified asthma, uncomplicated; Z98.890 Other specified postprocedural states; Z79.899 Other long term (current) drug therapy; Z91.013 Allergy to seafood; Z91.041 Radiographic dye allergy status
CPT/HCPCS: 36415; 76830; 76856; 80053; 84702; 85027

== ENCOUNTER 2019-02-20 21:27 | Emergency (ER) | payer BC ==
[2019-02-20] MEDS ORDERED: dexAMETHasone 4 MG/ML VIAL IM ONE (22:59)
[2019-02-20] MEDS ORDERED: FAMOTIDINE 20 MG TAB PO ONE (22:59)
[2019-02-20] MEDS ORDERED: diphenhydrAMINE 25 MG CAP PO ONE (22:59)
--- NOTE | 2019-02-20 23:35 | Emergency Department Report ---
- General Chief complaint: Extremity Injury, Upper Stated complaint: INSECT BITE TO ARM Time Seen by Provider: 02/20/19 22:42 Source: patient Mode of arrival: Ambulatory Limitations: No Limitations - History of Present Illness Initial comments: Patient is a 38-year-old female who presents to the emergency room with complaints of a insect sting to the right upper back that occurred around 20 minutes prior to arrival. Patient states that she felt like she had swelling in the right arm and tingling of the right arm. She denies any tingling currently. she denies any rash. She denies any difficulty breathing, throat swelling, any other symptoms. She has a past medical history of asthma and hypertension. she states she takes hydralazine for her hypertension. she denies any allergies to medications. - Related Data Home Medications Medication Instructions Recorded Confirmed Last Taken Ferrous Sulfate 325 mg PO DAILY 08/07/18 08/07/18 08/07/18 amLODIPine [Norvasc] 10 mg PO DAILY 08/07/18 08/07/18 08/07/18 hydrALAZINE [Apresoline TAB] 25 mg PO DAILY 08/07/18 08/07/18 08/07/18 Allergies Allergy/AdvReac Type Severity Reaction Status Date / Time Iodine and Iodide Containing Allergy Shortness Verified 08/07/18 09:56 Produc of Breath shellfish derived Allergy Shortness Verified 08/07/18 09:56 of Breath Abscess Boil HPI - HPI Chief Complaint: Extremity Injury, Upper Stated Complaint: INSECT BITE TO ARM Time Seen by Provider: 02/20/19 22:42 Home Medications: Home Medications Medication Instructions Recorded Confirmed Last Taken Ferrous Sulfate 325 mg PO DAILY 08/07/18 08/07/18 08/07/18 amLODIPine [Norvasc] 10 mg PO DAILY 08/07/18 08/07/18 08/07/18 hydrALAZINE [Apresoline TAB] 25 mg PO DAILY 08/07/18 08/07/18 08/07/18 Allergies/Adverse Reactions: Allergies Allergy/AdvReac Type Severity Reaction Status Date / Time Iodine and Iodide Containing Allergy Shortness Verified 08/07/18 09:56 Produc of Breath shellfish derived Allergy Shortness Verified 08/07/18 09:56 of Breath ED Review of Systems ROS: Stated complaint: INSECT BITE TO ARM Other details as noted in HPI Comment: All other systems reviewed and negative ED Past Medical Hx - Past Medical History Previous Medical History?: Yes Hx Hypertension: Yes Hx Heart Attack/AMI: No Hx Congestive Heart Failure: No Hx Diabetes: No Hx Deep Vein Thrombosis: No Hx Pulmonary Embolism: No Hx GERD: Yes Hx Renal Disease: No Hx Sickle Cell Disease: No Hx Arthritis: Yes Hx Headaches / Migraines: Yes Hx Seizures: No Hx Asthma: Yes Hx COPD: No Hx Tuberculosis: No - Surgical History Past Surgical History?: Yes Hx Coronary Stent: No Hx Pacemaker: No Hx Internal Defibrillator: No Additional Surgical History: x 3, knee surgery right - Social History Smoking Status: Never Smoker Substance Use Type: None - Medications Home Medications: Home Medications Medication Instructions Recorded Confirmed Last Taken Type Ferrous Sulfate 325 mg PO DAILY 08/07/18 08/07/18 08/07/18 History amLODIPine [Norvasc] 10 mg PO DAILY 08/07/18 08/07/18 08/07/18 History hydrALAZINE [Apresoline TAB] 25 mg PO DAILY 08/07/18 08/07/18 08/07/18 History ED Physical Exam - General Limitations: No Limitations General appearance: alert, in no apparent distress - Head Head exam: Present: atraumatic, normocephalic - Eye Eye exam: Present: normal appearance - ENT ENT exam: Present: normal orophraynx, mucous membranes moist, other (no angioedema, no lip edema, no tongue edema) - Neurological Exam Neurological exam: Present: alert, oriented X3 - Psychiatric Psychiatric exam: Present: normal affect, normal mood - Skin Skin exam: Present: warm, dry, other (small 1 cm raised area to the right upper back, no surrounding rash, no erythema, no increased warmth, bilateral arms are equal in size no swelling present) ED Course Vital Signs 02/20/19 02/20/19 21:32 23:50 Temperature 97.9 F Pulse Rate 99 H 88 Respiratory 18 16 Rate Blood Pressure 155/111 Blood Pressure 137/85 [Right] O2 Sat by Pulse 99 98 Oximetry ED Medical Decision Making - Medical Decision Making Patient is a 38-year-old female who presents to the emergency room with complaints of a insect sting to the right upper back that occurred around 20 minutes prior to arrival. Patient states that she felt like she had swelling in the right arm and tingling of the right arm. She denies any tingling currently. she denies any rash. She denies any difficulty breathing, throat swelling, any other symptoms. She has a past medical history of asthma and hypertension. she states she takes hydralazine for her hypertension. she denies any allergies to medications. initial vitals with elevated blood pressure which improved upon repeat. on exam: small 1 cm raised area to the right upper back, no surrounding rash, no erythema, no increased warmth, bilateral arms are equal in size no swelling present, no signs of angioedema. no obvious signs of allergic reaction to sting. pt given benadryl, pepcid, and dexamethasone. pt denies any symptoms at all after medications. advised pt to please follow up with a primary care doctor in the next 3-5 days. return to the emergency room for any new or worsening symptoms. - Differential Diagnosis allergic rxn, insect bite/sting Critical care attestation.: If time is entered above; I have spent that time in minutes in the direct care of this critically ill patient, excluding procedure time. ED Disposition Clinical Impression: Insect sting Qualifiers: Encounter type: initial encounter Injury intent: accidental or unintentional Qualified Code(s): T63.481A - Toxic effect of venom of other arthropod, accidental (unintentional), initial encounter Disposition: DC-01 TO HOME OR SELFCARE Is pt being admited?: No Does the pt Need Aspirin: No Condition: Stable Instructions: Insect Bite or Sting (ED) Additional Instructions: Please follow up with a primary care doctor in the next 3-5 days. return to the emergency room for any new or worsening symptoms. Referrals: [facility] [Provider Group] - 3-5 Days Forms: Accompanied Note, Work/School Release Form(ED) Time of Disposition: 00:00 Print Language: UZBEK
[2019-02-20 23:51] VITALS: BP 137/85
== END 2019-02-21 00:14 | disposition home or self-care (01) ==
LOC: ED 21:27
DX: S20.96XA Insect bite (nonvenomous) of unspecified parts of thorax, initial encounter (principal); I10 Essential (primary) hypertension; K21.9 Gastro-esophageal reflux disease without esophagitis; G43.909 Migraine, unspecified, not intractable, without status migrainosus; J45.909 Unspecified asthma, uncomplicated; Z79.899 Other long term (current) drug therapy; Z91.041 Radiographic dye allergy status; Z91.013 Allergy to seafood; W57.XXXA Bitten or stung by nonvenomous insect and other nonvenomous arthropods, initial encounter; Y93.89 Activity, other specified; Y92.89 Other specified places as the place of occurrence of the external cause; Y99.8 Other external cause status
CPT/HCPCS: 96372; 99282; J1100

== ENCOUNTER 2019-03-17 11:04 | Emergency (ER) | payer BC ==
--- NOTE | 2019-03-17 11:52 | Emergency Department Report ---
ED General Adult HPI - General Chief complaint: Dizziness Stated complaint: HTN Time Seen by Provider: 03/17/19 11:30 Source: patient Mode of arrival: Ambulatory Limitations: No Limitations - History of Present Illness Initial comments: Is a 38-year-old female presents to ED complaining of dizziness and headache that started about an hour ago while she was at work. 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 Patient states that she did take a blood pressure medication this morning. She states that the dizziness was intermittent and is resolved right now but she felt like she wanted to "pass out" earlier while she was at work today. She denies chest pain, shortness of breath, blurry vision, fever chills or any other symptoms - Related Data Home Medications Medication Instructions Recorded Confirmed Last Taken Ferrous Sulfate 325 mg PO DAILY 08/07/18 08/07/18 08/07/18 amLODIPine 10 mg PO DAILY 08/07/18 08/07/18 08/07/18 hydrALAZINE [Apresoline TAB] 25 mg PO DAILY 08/07/18 08/07/18 08/07/18 Previous Rx's Medication Instructions Recorded Last Taken Type Ibuprofen [Motrin] 800 mg PO Q8HR PRN #20 tablet 03/17/19 Unknown Rx Meclizine [Antivert] 25 mg PO TID PRN #21 tablet 03/17/19 Unknown Rx Allergies Allergy/AdvReac Type Severity Reaction Status Date / Time Iodine and Iodide Containing Allergy Shortness Verified 08/07/18 09:56 Produc of Breath shellfish derived Allergy Shortness Verified 08/07/18 09:56 of Breath ED Review of Systems ROS: Stated complaint: HTN Other details as noted in HPI Comment: All other systems reviewed and negative ED Past Medical Hx - Past Medical History Hx Hypertension: Yes Hx Heart Attack/AMI: No Hx Congestive Heart Failure: No Hx Diabetes: No Hx Deep Vein Thrombosis: No Hx Pulmonary Embolism: No Hx GERD: Yes Hx Renal Disease: No Hx Sickle Cell Disease: No Hx Arthritis: Yes Hx Headaches / Migraines: Yes Hx Seizures: No Hx Asthma: Yes Hx COPD: No Hx Tuberculosis: No - Surgical History Past Surgical History?: Yes Hx Coronary Stent: No Hx Pacemaker: No Hx Internal Defibrillator: No Additional Surgical History: x 3, knee surgery right - Social History Smoking Status: Never Smoker Substance Use Type: None - Medications Home Medications: Home Medications Medication Instructions Recorded Confirmed Last Taken Type Ferrous Sulfate 325 mg PO DAILY 08/07/18 08/07/18 08/07/18 History amLODIPine 10 mg PO DAILY 08/07/18 08/07/18 08/07/18 History hydrALAZINE [Apresoline TAB] 25 mg PO DAILY 08/07/18 08/07/18 08/07/18 History Ibuprofen [Motrin] 800 mg PO Q8HR PRN #20 tablet 03/17/19 Unknown Rx Meclizine [Antivert] 25 mg PO TID PRN #21 tablet 03/17/19 Unknown Rx ED Physical Exam - General Limitations: No Limitations General appearance: alert, in no apparent distress - Head Head exam: Present: atraumatic, normocephalic - Eye Eye exam: Present: normal appearance - ENT ENT exam: Present: mucous membranes moist - Neck Neck exam: Present: normal inspection - Respiratory Respiratory exam: Present: normal lung sounds bilaterally. Absent: respiratory distress - Cardiovascular Cardiovascular Exam: Present: regular rate, normal rhythm. Absent: systolic murmur, diastolic murmur, rubs, gallop - GI/Abdominal GI/Abdominal exam: Present: soft, normal bowel sounds - Extremities Exam Extremities exam: Present: normal inspection - Back Exam Back exam: Present: normal inspection - Neurological Exam Neurological exam: Present: alert, oriented X3 - Psychiatric Psychiatric exam: Present: normal affect, normal mood - Skin Skin exam: Present: warm, dry, intact, normal color. Absent: rash ED Course Vital Signs 03/17/19 03/17/19 11:08 14:52 Temperature 98.5 F Pulse Rate 116 H 81 Respiratory 18 20 Rate Blood Pressure 182/108 Blood Pressure 158/101 [Left] O2 Sat by Pulse 98 Oximetry ED Medical Decision Making - Lab Data Result diagrams: 03/17/19 11:54 03/17/19 11:54 Laboratory Last Values WBC 6.1 K/mm3 (4.5-11.0) 03/17/19 11:54 RBC 3.84 M/mm3 (3.65-5.03) 03/17/19 11:54 Hgb 10.0 gm/dl (10.1-14.3) L 03/17/19 11:54 Hct 31.9 % (30.3-42.9) 03/17/19 11:54 MCV 83 fl (79-97) 03/17/19 11:54 MCH 26 pg (28-32) L 03/17/19 11:54 MCHC 31 % (30-34) 03/17/19 11:54 RDW 16.5 % (13.2-15.2) H 03/17/19 11:54 Plt Count 336 K/mm3 (140-440) 03/17/19 11:54 Lymph % (Auto) 34.7 % (13.4-35.0) 03/17/19 11:54 Bertie % (Auto) 11.0 % (0.0-7.3) H 03/17/19 11:54 Eos % (Auto) 0.7 % (0.0-4.3) 03/17/19 11:54 Baso % (Auto) 0.3 % (0.0-1.8) 03/17/19 11:54 Lymph # 2.1 K/mm3 (1.2-5.4) 03/17/19 11:54 Bertie # 0.7 K/mm3 (0.0-0.8) 03/17/19 11:54 Eos # 0.0 K/mm3 (0.0-0.4) 03/17/19 11:54 Baso # 0.0 K/mm3 (0.0-0.1) 03/17/19 11:54 Seg Neutrophils % 53.3 % (40.0-70.0) 03/17/19 11:54 Seg Neutrophils # 3.2 K/mm3 (1.8-7.7) 03/17/19 11:54 Sodium 137 mmol/L (137-145) 03/17/19 11:54 Potassium 4.1 mmol/L (3.6-5.0) 03/17/19 11:54 Chloride 103.9 mmol/L (98-107) 03/17/19 11:54 Carbon Dioxide 22 mmol/L (22-30) 03/17/19 11:54 Anion Gap 15 mmol/L 03/17/19 11:54 BUN 8 mg/dL (7-17) 03/17/19 11:54 Creatinine 0.7 mg/dL (0.7-1.2) 03/17/19 11:54 Estimated GFR > 60 ml/min 03/17/19 11:54 BUN/Creatinine Ratio 11 % 03/17/19 11:54 Glucose 111 mg/dL (65-100) H 03/17/19 11:54 Calcium 8.6 mg/dL (8.4-10.2) 03/17/19 11:54 Urine Color Yellow (Yellow) 03/17/19 12:13 Urine Turbidity Clear (Clear) 03/17/19 12:13 Urine pH 7.0 (5.0-7.0) 03/17/19 12:13 Ur Specific [place] 1.008 (1.003-1.030) 03/17/19 12:13 Urine Protein <15 mg/dl mg/dL (Negative) 03/17/19 12:13 Urine Glucose (UA) Neg mg/dL (Negative) 03/17/19 12:13 Urine Ketones Neg mg/dL (Negative) 03/17/19 12:13 Urine Blood Lg (Negative) 03/17/19 12:13 Urine Nitrite Neg (Negative) 03/17/19 12:13 Ur Reducing Substances Not Reportable 03/17/19 12:13 Urine Bilirubin Neg (Negative) 03/17/19 12:13 Urine Ictotest Not Reportable 03/17/19 12:13 Urine Urobilinogen < 2.0 mg/dL (<2.0) 03/17/19 12:13 Ur Leukocyte Esterase Neg (Negative) 03/17/19 12:13 Urine WBC (Auto) 7.0 /HPF (0.0-6.0) H 03/17/19 12:13 Urine RBC (Auto) > 182.0 /HPF (0.0-6.0) 03/17/19 12:13 U Epithel Cells (Auto) < 1.0 /HPF (0-13.0) 03/17/19 12:13 Urine Bacteria (Auto) 1+ /HPF (Negative) 03/17/19 12:13 Urine Mucus Few /HPF 03/17/19 12:13 Urine HCG, Qual Negative (Negative) 03/17/19 12:13 Critical care attestation.: If time is entered above; I have spent that time in minutes in the direct care of this critically ill patient, excluding procedure time. ED Disposition Clinical Impression: Dizziness, nonspecific Disposition: DC-01 TO HOME OR SELFCARE Is pt being admited?: No Does the pt Need Aspirin: No Condition: Stable Instructions: Vertigo (ED), Lightheadedness (ED), Dizziness (ED) Additional Instructions: Make sure to follow up with the primary care physician as discussed. Take all your medications as you've been prescribed. If you have any worsening symptoms or develop new symptoms please return to ED immediately. Continue to take her blood pressure medication. Prescriptions: Meclizine [Antivert] 25 mg PO TID PRN #21 tablet PRN Reason: Vertigo Ibuprofen [Motrin] 800 mg PO Q8HR PRN #20 tablet PRN Reason: Headache Referrals: [facility] [Provider Group] - 3-5 Days Forms: Accompanied Note, Work/School Release Form(ED) Time of Disposition: 14:53
[2019-03-17 12:19] LABS: Basophils % (Auto) 0.3 % (0.0-1.8); Eosinophils % (Auto) 0.7 % (0.0-4.3); Hematocrit 31.9 % (30.3-42.9); Lymphocytes # (Auto) 2.1 K/mm3 (1.2-5.4); Lymphocytes % (Auto) 34.7 % (13.4-35.0); Mean Corpuscular HGB Conc 31 % (30-34); Mean Corpuscular Volume 83 fl (79-97); Monocytes # (Auto) 0.7 K/mm3 (0.0-0.8); Platelet Count 336 K/mm3 (140-440); Red Blood Count 3.84 M/mm3 (3.65-5.03); Red Cell Distribution Width 16.5 % (13.2-15.2)
[2019-03-17 12:33] LABS: BUN/Creatinine Ratio 11; Blood Urea Nitrogen 8 mg/dL (7-17); Calcium 8.6 mg/dL (8.4-10.2); Hemolysis Index 3
[2019-03-17 13:00] LABS: HCG Qualitative,Urine Negative (Negative)
[2019-03-17 13:07] LABS: Bacteria,Urine 1+ /HPF (Negative); Bilirubin,Urine NEG (Negative); Blood,Urine LG (Negative); Color,Urine Yellow (Yellow); Mucus,Urine FEW /HPF; Protein,Urine <15 mg/dL mg/dL (Negative); RBC,Urine > 182.0 /HPF (0.0-6.0); Urobilinogen,Urine < 2.0 mg/dL (<2.0)
[2019-03-17] MEDS ORDERED: FIORICET PO ONE (13:54)
[2019-03-17 14:53] VITALS: BP 158/101
== END 2019-03-17 15:27 | disposition home or self-care (01) ==
LOC: ED 11:04
DX: R42 Dizziness and giddiness (principal); I10 Essential (primary) hypertension; K21.9 Gastro-esophageal reflux disease without esophagitis; M19.90 Unspecified osteoarthritis, unspecified site; G43.909 Migraine, unspecified, not intractable, without status migrainosus; J45.909 Unspecified asthma, uncomplicated; Z98.890 Other specified postprocedural states; Z79.899 Other long term (current) drug therapy; Z91.041 Radiographic dye allergy status; Z91.013 Allergy to seafood
CPT/HCPCS: 36415; 80048; 81001; 81025; 85025

== ENCOUNTER 2019-04-29 09:40 | Emergency (ER) | payer BC ==
--- NOTE | 2019-04-29 10:43 | Emergency Department Report ---
ED Lower Extremity HPI - General Chief Complaint: Extremity Injury, Lower Stated Complaint: KNEE PAIN/HYPERTENSION Time Seen by Provider: 04/29/19 10:19 Source: patient Mode of arrival: Wheelchair Limitations: Physical Limitation - History of Present Illness Initial Comments: 39-year-old female presents to the ED with bilateral knee pain 5 days. The p atient has a history of arthritis in bilateral knees and right knee replacement surgery several years ago. Patient reports intermittent chronic bilateral knee pain since her surgery. Patient states she believes the change in weather has caused this recent exacerbation of her chronic knee pain. Patient states she has been taking ibuprofen and also Percocet (which she received from her PCP), without relief of the pain. Patient has not followed up with the surgeon who performed her knee replacement. She denies any calf pain or fever. Of note, patient also reports that her blood pressure is elevated. Patient is an employee here at the hospital, states she had a nurse check her BP and it was high. Patient states she currently takes hydralazine, which she has been compliant with. The patient states her blood pressure has never been this high, however, patient was seen in the ED 2 months ago for elevated blood pressure. During that visit in February, her blood pressure was 182/108. Patient reports mild dizziness; denies chest pain or shortness of breath, extremity numbness or weakness. PCP: Paolo Holley MD Complaint: other (knee pain) -: days(s) (5) Severity: moderate Improves With: immobilization Worsens With: weight bearing Context: other (chronic issue) Associated Symptoms: swelling, ambulatory - Related Data Home Medications Medication Instructions Recorded Confirmed Last Taken Ferrous Sulfate 325 mg PO DAILY 08/07/18 08/07/18 08/07/18 amLODIPine 10 mg PO DAILY 08/07/18 08/07/18 08/07/18 hydrALAZINE [Apresoline TAB] 25 mg PO DAILY 08/07/18 08/07/18 08/07/18 Previous Rx's Medication Instructions Recorded Last Taken Type Ibuprofen [Motrin] 800 mg PO Q8HR PRN #20 tablet 03/17/19 Unknown Rx Meclizine [Antivert] 25 mg PO TID PRN #21 tablet 03/17/19 Unknown Rx Allergies Allergy/AdvReac Type Severity Reaction Status Date / Time Iodine and Iodide Containing Allergy Shortness Verified 08/07/18 09:56 Produc of Breath shellfish derived Allergy Shortness Verified 08/07/18 09:56 of Breath ED Review of Systems ROS: Stated complaint: KNEE PAIN/HYPERTENSION Other details as noted in HPI Comment: All other systems reviewed and negative Constitutional: denies: chills, fever Respiratory: denies: shortness of breath Cardiovascular: denies: chest pain Gastrointestinal: denies: nausea, vomiting Musculoskeletal: as per HPI Neurological: other (reports mild dizziness). denies: weakness, numbness ED Past Medical Hx - Past Medical History Hx Hypertension: Yes Hx Heart Attack/AMI: No Hx Congestive Heart Failure: No Hx Diabetes: No Hx Deep Vein Thrombosis: No Hx Pulmonary Embolism: No Hx GERD: Yes Hx Renal Disease: No Hx Sickle Cell Disease: No Hx Arthritis: Yes Hx Headaches / Migraines: Yes Hx Seizures: No Hx Asthma: Yes Hx COPD: No Hx Tuberculosis: No - Surgical History Past Surgical History?: Yes Hx Coronary Stent: No Hx Pacemaker: No Hx Internal Defibrillator: No Additional Surgical History: x 3, right knee replacement - Social History Smoking Status: Never Smoker Substance Use Type: None - Medications Home Medications: Home Medications Medication Instructions Recorded Confirmed Last Taken Type Ferrous Sulfate 325 mg PO DAILY 08/07/18 08/07/18 08/07/18 History amLODIPine 10 mg PO DAILY 08/07/18 08/07/18 08/07/18 History hydrALAZINE [Apresoline TAB] 25 mg PO DAILY 08/07/18 08/07/18 08/07/18 History Ibuprofen [Motrin] 800 mg PO Q8HR PRN #20 tablet 03/17/19 Unknown Rx Meclizine [Antivert] 25 mg PO TID PRN #21 tablet 03/17/19 Unknown Rx ED Physical Exam - General Limitations: Physical Limitation General appearance: alert, in no apparent distress, obese - Head Head exam: Present: atraumatic, normocephalic - Eye Eye exam: Present: normal appearance, EOMI - ENT ENT exam: Present: mucous membranes moist - Neck Neck exam: Present: normal inspection, full ROM - Respiratory Respiratory exam: Present: normal lung sounds bilaterally. Absent: respiratory distress - Cardiovascular Cardiovascular Exam: Present: regular rate, normal rhythm - GI/Abdominal GI/Abdominal exam: Present: soft. Absent: distended, tenderness - Extremities Exam Extremities exam: Present: other (tenderness to anterior bilateral knees; tenderness with ROM of bilateral knees; no obvious knee swelling; no calf tenderness present, ) - Neurological Exam Neurological exam: Present: alert, oriented X3, CN II-XII intact, normal gait. Absent: motor sensory deficit - Psychiatric Psychiatric exam: Present: normal affect, normal mood - Skin Skin exam: Present: warm, dry, intact, normal color ED Course Vital Signs 04/29/19 04/29/19 04/29/19 09:53 10:47 11:28 Temperature 98.3 F 98.1 F Pulse Rate 89 91 H 80 Respiratory 16 18 Rate Blood Pressure 172/117 Blood Pressure 190/119 198/129 [Left] O2 Sat by Pulse 96 97 Oximetry 04/29/19 11:31 Temperature 98.0 F Pulse Rate 80 Respiratory 18 Rate Blood Pressure Blood Pressure 172/117 [Left] O2 Sat by Pulse 98 Oximetry ED Lower Extremity MDM - Medical Decision Making 39-year-old female, morbidly obese, presents to ED with exacerbation of chronic bilateral knee pain. Blood pressure is also elevated. Patient has history of chronic, uncontrolled hypertension, was seen for same in February of this year. It is also possible that her blood pressure is elevated due to her knee pain. Patient has no neuro deficits at this time. Patient concerned about her blood pressure, so clonidine given here in the ED. Patient advised to follow up with her primary care physician for blood pressure management. She has also been advised to follow-up with orthopedic surgeon of her chronic knee pain. Also had a conversation with patient regarding diet and exercise which would help to control her blood pressure and also her knee pain. - Differential Diagnosis chronic knee pain, uncontrolled hypertension Critical care attestation.: If time is entered above; I have spent that time in minutes in the direct care of this critically ill patient, excluding procedure time. ED Disposition Clinical Impression: Uncontrolled hypertension, Chronic pain of both knees Disposition: Z- MED SCREENING EXAM-CONT Is pt being admited?: No Condition: Stable Instructions: Knee Pain (ED), Hypertension (ED) Referrals: [facility] [Provider Group] - 3-5 Days PRIMARY MD CASI [Referring] - 3-5 Days DANIKA STEVENS MD [Staff Physician] - 3-5 Days NOAH EVANS MD [Referring] - 3-5 Days Forms: Work/School Release Form Time of Disposition: 11:17
[2019-04-29] MEDS ORDERED: cloNIDine 0.2 MG TAB PO ONE (11:15)
[2019-04-29 11:31] VITALS: BP 172/117
== END 2019-04-29 11:33 | disposition home or self-care (01) ==
LOC: ED 09:40
DX: G89.29 Other chronic pain (principal); M25.561 Pain in right knee; M25.562 Pain in left knee; I10 Essential (primary) hypertension; M19.90 Unspecified osteoarthritis, unspecified site; J45.909 Unspecified asthma, uncomplicated
CPT/HCPCS: 99282

== ENCOUNTER 2019-06-04 11:28 | Emergency (ER) | payer BC ==
[2019-06-04 11:48] VITALS: BP 172/85
--- NOTE | 2019-06-04 11:49 | Event Note ---
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 Further treatment and workup at subsequent clinical providers discretion. Patient/guardian urged not to elope from the ED as their condition may be serious if not clinically assessed and managed. Initial orders include: XRAY
[2019-06-04] MEDS ORDERED: HYDROcodone/ACETAMINOPHEN 10-325MG TAB PO ONE (13:27)
--- NOTE | 2019-06-04 13:41 | Emergency Department Report ---
ED Lower Extremity HPI - General Chief Complaint: Fall Stated Complaint: FALL Time Seen by Provider: 06/04/19 11:48 Source: patient Mode of arrival: Ambulatory Limitations: No Limitations - History of Present Illness Initial Comments: This is a 39-year-old female nontoxic, well nourished in appearance, no acute signs of distress presents to the ED with c/o of right knee pain status post fall that occurred today. Patient stated that her right knee gave out and she fell and right knee as well. Patient denies any other trauma. Patient denies any head trauma or loss of consciousness. She denies any back pain or neck pain. Patient denies any other complaints. Patient denies any numbness, tingling, fever, chills, nausea, vomiting, chest pain, shortness of breath, headache, stiff neck. Patient denies any joint swelling or joint redness. Patient denies decreased range of motion. Patient stated has decreased gait due to pain. Patient stated allergies to iodine and shellfish. MD Complaint: knee injury -: This afternoon Injury: Knee: Right Severity: mild Severity scale (0 -10): 8 Improves With: immobilization Worsens With: weight bearing, movement, palpation Context: fall Associated Symptoms: swelling, able to partially bear weight. denies: snap/pop sensation, numbness, tingling, unable to bear weight - Related Data Home Medications Medication Instructions Recorded Confirmed Last Taken Ferrous Sulfate 325 mg PO DAILY 08/07/18 08/07/18 08/07/18 amLODIPine 10 mg PO DAILY 08/07/18 08/07/18 08/07/18 hydrALAZINE [Apresoline TAB] 25 mg PO DAILY 08/07/18 08/07/18 08/07/18 Previous Rx's Medication Instructions Recorded Last Taken Type Ibuprofen [Motrin] 800 mg PO Q8HR PRN #20 tablet 03/17/19 Unknown Rx Meclizine [Antivert] 25 mg PO TID PRN #21 tablet 03/17/19 Unknown Rx Naproxen 500 mg PO Q12H PRN #20 tablet 06/04/19 Unknown Rx Allergies Allergy/AdvReac Type Severity Reaction Status Date / Time Iodine and Iodide Containing Allergy Shortness Verified 08/07/18 09:56 Produc of Breath shellfish derived Allergy Shortness Verified 08/07/18 09:56 of Breath ED Review of Systems ROS: Stated complaint: FALL Other details as noted in HPI Constitutional: denies: chills, fever Eyes: denies: eye pain, eye discharge, vision change ENT: denies: ear pain, throat pain Respiratory: denies: cough, shortness of breath, wheezing Cardiovascular: denies: chest pain, palpitations Endocrine: no symptoms reported Gastrointestinal: denies: abdominal pain, nausea, diarrhea Genitourinary: denies: urgency, dysuria, discharge Musculoskeletal: denies: back pain, joint swelling, arthralgia Skin: denies: rash, lesions Neurological: denies: headache, weakness, paresthesias Psychiatric: denies: anxiety, depression Hematological/Lymphatic: denies: easy bleeding, easy bruising ED Past Medical Hx - Past Medical History Hx Hypertension: Yes Hx Heart Attack/AMI: No Hx Congestive Heart Failure: No Hx Diabetes: No Hx Deep Vein Thrombosis: No Hx Pulmonary Embolism: No Hx GERD: Yes Hx Renal Disease: No Hx Sickle Cell Disease: No Hx Arthritis: Yes Hx Headaches / Migraines: Yes Hx Seizures: No Hx Asthma: Yes Hx COPD: No Hx Tuberculosis: No - Surgical History Hx Coronary Stent: No Hx Pacemaker: No Hx Internal Defibrillator: No Additional Surgical History: x 3, right knee replacement - Social History Smoking Status: Never Smoker Substance Use Type: None - Medications Home Medications: Home Medications Medication Instructions Recorded Confirmed Last Taken Type Ferrous Sulfate 325 mg PO DAILY 08/07/18 08/07/18 08/07/18 History amLODIPine 10 mg PO DAILY 08/07/18 08/07/18 08/07/18 History hydrALAZINE [Apresoline TAB] 25 mg PO DAILY 08/07/18 08/07/18 08/07/18 History Ibuprofen [Motrin] 800 mg PO Q8HR PRN #20 tablet 03/17/19 Unknown Rx Meclizine [Antivert] 25 mg PO TID PRN #21 tablet 03/17/19 Unknown Rx Naproxen 500 mg PO Q12H PRN #20 tablet 06/04/19 Unknown Rx ED Physical Exam - General Limitations: No Limitations General appearance: alert, in no apparent distress - Head Head exam: Present: atraumatic, normocephalic - Eye Eye exam: Present: normal appearance, PERRL, EOMI - Neck Neck exam: Present: normal inspection, full ROM. Absent: tenderness, meningismus, lymphadenopathy - Extremities Exam Extremities exam: Present: normal inspection, full ROM, tenderness, normal capillary refill. Absent: joint swelling, calf tenderness - Expanded Lower Extremity Exam Right Hip exam: Present: normal inspection, full ROM. Absent: tenderness, swelling Upper Leg exam: Present: normal inspection, full ROM. Absent: tenderness, swelling Knee exam: Present: normal inspection, full ROM, tenderness, swelling, full knee extension. Absent: abrasion, laceration, ecchymosis, deformity, crepidus, dislocation, erythema, effusion, pain w/ pronation/supination, posterior draw sign, pain/laxity with valgus, pain/laxity with varus Lower Leg exam: Present: normal inspection, full ROM. Absent: tenderness, swelling Ankle exam: Present: normal inspection, full ROM. Absent: tenderness, swelling Foot/Toe exam: Present: normal inspection, full ROM. Absent: tenderness, swelling Neuro vascular tendon exam: Present: no vascular compromise Gait: Positive: observed and limited by pain - Back Exam Back exam: Present: normal inspection, full ROM. Absent: tenderness, CVA tenderness (R), CVA tenderness (L), muscle spasm, paraspinal tenderness, vertebral tenderness, rash noted - Neurological Exam Neurological exam: Present: alert, oriented X3, normal gait - Psychiatric Psychiatric exam: Present: normal affect, normal mood - Skin Skin exam: Present: warm, dry, intact, normal color. Absent: rash ED Course Vital Signs 06/04/19 11:47 Temperature 97.7 F Pulse Rate 97 H Respiratory 20 Rate Blood Pressure 172/85 O2 Sat by Pulse 99 Oximetry - Reevaluation(s) Reevaluation #1: 06/04/19 13:40 Patient is speaking in full sentences with no signs of distress noted. ED Lower Extremity MDM - Medical Decision Making This is a 39-year-old female that presents with right knee strain. Patient is stable and was examined by me. I referred patient to an orthopedic doctor for further evaluation for possible MRI. X-ray has been obtained and dictated by the radiologist. Patient is notified of the x-ray report with noted by the patient. Patient does have normal gait with no tenderness and no joint swelling. No ecchymosis. no joint redness or swelling. Not warm to touch. No signs of cellulites present. Patient received a knee immobilize. Patient was instructed to RICE therapy. Patient received [place] for pain and stated family member will drive home after discharge due to possible drowsiness. Patient is discharged with Naproxen. At time of discharge, the patient does not seem toxic or ill in appearance. No acute signs of distress noted. Patient agrees to discharge treatment plan of care. No further questions noted by the patient. Critical care attestation.: If time is entered above; I have spent that time in minutes in the direct care of this critically ill patient, excluding procedure time. ED Disposition Clinical Impression: Strain of right knee Qualifiers: Encounter type: initial encounter Qualified Code(s): S86.911A - Strain of unspecified muscle(s) and tendon(s) at lower leg level, right leg, initial encounter Disposition: TO HOME OR SELFCARE Is pt being admited?: No Does the pt Need Aspirin: No Condition: Stable Instructions: Knee Pain (ED), RICE Therapy (ED), Knee Immobilizer (ED) Additional Instructions: Follow-up with a orthopedic doctor in 3-5 days or if symptoms worsen and continue return to emergency room as soon as possible. Prescriptions: Naproxen 500 mg PO Q12H PRN #20 tablet PRN Reason: Pain, Moderate (4-6) Referrals: PRIMARY CARE, [Referring] - 3-5 Days DANIKA STEVENS MD [Staff Physician] - 3-5 Days [facility] [Outside] - 3-5 Days Forms: Work/School Release Form(ED)
--- NOTE | 2019-06-04 14:15 | XRay Report ---
RIGHT KNEE 3 VIEWS INDICATION / CLINICAL INFORMATION: Right knee pain after fall. COMPARISON: None available. FINDINGS: BONES and JOINT(S): No acute fracture or subluxation. No significant arthritis. A total knee arthropl asty appears intact and in good position. SOFT TISSUES: No significant abnormality. ADDITIONAL FINDINGS: None. IMPRESSION: No acute abnormality of the right knee. Signer Name: Abdoulaye Mills MD Signed: 06/04/2019 2:11 PM Workstation Name: [id number]
== END 2019-06-04 15:00 | disposition home or self-care (01) ==
LOC: ED 11:28
DX: S86.911A Strain of unspecified muscle(s) and tendon(s) at lower leg level, right leg, initial encounter (principal); I10 Essential (primary) hypertension; K21.9 Gastro-esophageal reflux disease without esophagitis; G43.909 Migraine, unspecified, not intractable, without status migrainosus; J45.909 Unspecified asthma, uncomplicated; Z96.651 Presence of right artificial knee joint; Z79.899 Other long term (current) drug therapy; Z91.041 Radiographic dye allergy status; Z91.013 Allergy to seafood; W18.39XA Other fall on same level, initial encounter; Y93.89 Activity, other specified; Y92.89 Other specified places as the place of occurrence of the external cause; Y99.0 Civilian activity done for income or pay

== ENCOUNTER 2019-10-10 11:47 | Emergency (ER) | payer SELFPAY ==
[2019-10-10 11:56] VITALS: BP 198/88
[2019-10-10 12:42] LABS: Bacteria,Urine 1+ /HPF (Negative); Bilirubin,Urine NEG (Negative); Blood,Urine LG (Negative); Color,Urine Yellow (Yellow); Mucus,Urine FEW /HPF
[2019-10-10 14:09] LABS: Basophils # (Auto) 0.1 K/mm3 (0.0-0.1); Basophils % (Auto) 1.8 % (0.0-1.8); Eosinophils # (Auto) 0.1 K/mm3 (0.0-0.4); Eosinophils % (Auto) 0.9 % (0.0-4.3); Hematocrit 30.7 % (30.3-42.9); Hemoglobin 9.3 gm/dl (10.1-14.3); Lymphocytes # (Auto) 2.2 K/mm3 (1.2-5.4); Lymphocytes % (Auto) 38.8 % (13.4-35.0); Mean Corpuscular HGB Conc 30 % (30-34); Mean Corpuscular Volume 76 fl (79-97); Monocytes # (Auto) 0.6 K/mm3 (0.0-0.8); Monocytes % (Auto) 11.2 % (0.0-7.3); Platelet Count 395 K/mm3 (140-440); Red Blood Count 4.03 M/mm3 (3.65-5.03); Red Cell Distribution Width 19.4 % (13.2-15.2)
[2019-10-10 14:16] LABS: BUN/Creatinine Ratio 14; Blood Urea Nitrogen 10 mg/dL (7-17); Calcium 9.3 mg/dL (8.4-10.2); Hemolysis Index 5
[2019-10-10 14:22] LABS: INR 0.95 (0.87-1.13)
[2019-10-10 14:29] LABS: HCG Qualitative,Urine Negative (Negative)
--- NOTE | 2019-10-10 15:38 | Emergency Department Report ---
ED Abdominal Pain HPI - General Chief Complaint: Abdominal Pain Stated Complaint: BLOOD IN URINE/BACK PAIN/ABD PAIN Time Seen by Provider: 10/10/19 12:46 Source: patient Mode of arrival: Ambulatory Limitations: No Limitations - History of Present Illness Initial Comments: 39-year-old obese -Citizen Of [place] female with past medical history of arthritis, asthma, hypertension presents emergency department complaining of a 3-week history of leg pain for which she was seen by her primary care provider flank pain was associated with hematuria. Stated she was treated with a round of antibiotics about 2 weeks ago but the bleeding continued she was poorly referred to urology but has yet to obtain an appointment. Presents emergency department today stating that the blood in the urine has an increased MD Complaint: abdominal pain, flank pain -: Gradual, week(s) (3) Radiation: none Improves With: nothing Worsens With: nothing Associated Symptoms: denies: vomiting, diarrhea, constipation, dysuria - Related Data Home Medications Medication Instructions Recorded Confirmed Last Taken Ferrous Sulfate 325 mg PO DAILY 08/07/18 08/07/18 08/07/18 amLODIPine 10 mg PO DAILY 08/07/18 08/07/18 08/07/18 hydrALAZINE [Apresoline TAB] 25 mg PO DAILY 08/07/18 08/07/18 08/07/18 Previous Rx's Medication Instructions Recorded Last Taken Type Ibuprofen [Motrin] 800 mg PO Q8HR PRN #20 tablet 03/17/19 Unknown Rx Meclizine [Antivert] 25 mg PO TID PRN #21 tablet 03/17/19 Unknown Rx Naproxen 500 mg PO Q12H PRN #20 tablet 06/04/19 Unknown Rx Allergies Allergy/AdvReac Type Severity Reaction Status Date / Time Iodine and Iodide Containing Allergy Shortness Verified 10/10/19 11:49 Produc of Breath shellfish derived Allergy Shortness Verified 10/10/19 11:49 of Breath ED Review of Systems ROS: Stated complaint: BLOOD IN URINE/BACK PAIN/ABD PAIN Other details as noted in HPI Comment: All other systems reviewed and negative ED Past Medical Hx - Past Medical History Hx Hypertension: Yes Hx Heart Attack/AMI: No Hx Congestive Heart Failure: No Hx Diabetes: No Hx Deep Vein Thrombosis: No Hx Pulmonary Embolism: No Hx GERD: Yes Hx Renal Disease: No Hx Sickle Cell Disease: No Hx Arthritis: Yes Hx Headaches / Migraines: Yes Hx Seizures: No Hx Asthma: Yes Hx COPD: No Hx Tuberculosis: No - Surgical History Hx Coronary Stent: No Hx Pacemaker: No Hx Internal Defibrillator: No Additional Surgical History: x 3, right knee replacement - Social History Smoking Status: Never Smoker Substance Use Type: None - Medications Home Medications: Home Medications Medication Instructions Recorded Confirmed Last Taken Type Ferrous Sulfate 325 mg PO DAILY 08/07/18 08/07/18 08/07/18 History amLODIPine 10 mg PO DAILY 08/07/18 08/07/18 08/07/18 History hydrALAZINE [Apresoline TAB] 25 mg PO DAILY 08/07/18 08/07/18 08/07/18 History Ibuprofen [Motrin] 800 mg PO Q8HR PRN #20 tablet 03/17/19 Unknown Rx Meclizine [Antivert] 25 mg PO TID PRN #21 tablet 03/17/19 Unknown Rx Naproxen 500 mg PO Q12H PRN #20 tablet 06/04/19 Unknown Rx ED Physical Exam - General Limitations: No Limitations General appearance: alert, in no apparent distress - Head Head exam: Present: atraumatic, normocephalic - Eye Eye exam: Present: normal appearance - ENT ENT exam: Present: mucous membranes moist - Neck Neck exam: Present: normal inspection - Respiratory Respiratory exam: Present: normal lung sounds bilaterally. Absent: respiratory distress - Cardiovascular Cardiovascular Exam: Present: regular rate, normal rhythm. Absent: systolic murmur, diastolic murmur, rubs, gallop - GI/Abdominal GI/Abdominal exam: Present: soft, tenderness (Mild tenderness towards the flank region. Abdomen is soft. No Rovsing, no Mata Lock, no Mcclave sign, no tenderness at McBurney's no Curtis sign), normal bowel sounds. Absent: organomegaly, mass, pulsatile mass - Extremities Exam Extremities exam: Present: normal inspection - Back Exam Back exam: Present: normal inspection, CVA tenderness (R), CVA tenderness (L) - Neurological Exam Neurological exam: Present: alert, oriented X3 - Psychiatric Psychiatric exam: Present: normal affect, normal mood - Skin Skin exam: Present: warm, dry, intact, normal color. Absent: rash ED Course Vital Signs 10/10/19 11:52 Temperature 98.7 F Pulse Rate 78 Respiratory 20 Rate Blood Pressure 198/88 O2 Sat by Pulse 98 Oximetry ED Medical Decision Making - Lab Data Result diagrams: 10/10/19 13:38 10/10/19 13:38 Lab Results 10/10/19 10/10/19 10/10/19 Range/Units 12:54 13:38 13:38 WBC 5.8 (4.5-11.0) K/mm3 RBC 4.03 (3.65-5.03) M/mm3 Hgb 9.3 L (10.1-14.3) gm/dl Hct 30.7 (30.3-42.9) % MCV 76 L (79-97) fl MCH 23 L (28-32) pg MCHC 30 (30-34) % RDW 19.4 H (13.2-15.2) % Plt Count 395 (140-440) K/mm3 Lymph % (Auto) 38.8 H (13.4-35.0) % [place] % (Auto) 11.2 H (0.0-7.3) % Eos % (Auto) 0.9 (0.0-4.3) % Baso % (Auto) 1.8 (0.0-1.8) % Lymph # 2.2 (1.2-5.4) K/mm3 [place] # 0.6 (0.0-0.8) K/mm3 Eos # 0.1 (0.0-0.4) K/mm3 Baso # 0.1 (0.0-0.1) K/mm3 Seg Neutrophils % 47.3 (40.0-70.0) % Seg Neutrophils # 2.7 (1.8-7.7) K/mm3 PT 12.8 (12.2-14.9) Sec. INR 0.95 (0.87-1.13) Sodium (137-145) mmol/L Potassium (3.6-5.0) mmol/L Chloride (98-107) mmol/L Carbon Dioxide (22-30) mmol/L Anion Gap mmol/L BUN (7-17) mg/dL Creatinine (0.7-1.2) mg/dL Estimated GFR ml/min BUN/Creatinine Ratio % Glucose (65-100) mg/dL Calcium (8.4-10.2) mg/dL Urine Color (Yellow) Urine Turbidity (Clear) Urine pH (5.0-7.0) Ur Specific [place] (1.003-1.030) Urine Protein (Negative) mg/dL Urine Glucose (UA) (Negative) mg/dL Urine Ketones (Negative) mg/dL Urine Blood (Negative) Urine Nitrite (Negative) Urine Bilirubin (Negative) Urine Urobilinogen (<2.0) mg/dL Ur Leukocyte Esterase (Negative) Urine WBC (Auto) (0.0-6.0) /HPF Urine RBC (Auto) (0.0-6.0) /HPF U Epithel Cells (Auto) (0-13.0) /HPF Urine Bacteria (Auto) (Negative) /HPF Urine Mucus /HPF Urine HCG, Qual Negative (Negative) 10/10/19 10/10/19 Range/Units 13:38 Unknown WBC (4.5-11.0) K/mm3 RBC (3.65-5.03) M/mm3 Hgb (10.1-14.3) gm/dl Hct (30.3-42.9) % MCV (79-97) fl MCH (28-32) pg MCHC (30-34) % RDW (13.2-15.2) % Plt Count (140-440) K/mm3 Lymph % (Auto) (13.4-35.0) % [place] % (Auto) (0.0-7.3) % Eos % (Auto) (0.0-4.3) % Baso % (Auto) (0.0-1.8) % Lymph # (1.2-5.4) K/mm3 [place] # (0.0-0.8) K/mm3 Eos # (0.0-0.4) K/mm3 Baso # (0.0-0.1) K/mm3 Seg Neutrophils % (40.0-70.0) % Seg Neutrophils # (1.8-7.7) K/mm3 PT (12.2-14.9) Sec. INR (0.87-1.13) Sodium 137 (137-145) mmol/L Potassium 4.3 (3.6-5.0) mmol/L Chloride 103.4 (98-107) mmol/L Carbon Dioxide 22 (22-30) mmol/L Anion Gap 16 mmol/L BUN 10 (7-17) mg/dL Creatinine 0.7 (0.7-1.2) mg/dL Estimated GFR > 60 ml/min BUN/Creatinine Ratio 14 % Glucose 87 (65-100) mg/dL Calcium 9.3 (8.4-10.2) mg/dL Urine Color Yellow (Yellow) Urine Turbidity Slightly-cloudy (Clear) Urine pH 5.0 (5.0-7.0) Ur Specific [place] 1.018 (1.003-1.030) Urine Protein 30 mg/dl (Negative) mg/dL Urine Glucose (UA) Neg (Negative) mg/dL Urine Ketones Neg (Negative) mg/dL Urine Blood Lg (Negative) Urine Nitrite Neg (Negative) Urine Bilirubin Neg (Negative) Urine Urobilinogen 2.0 (<2.0) mg/dL Ur Leukocyte Esterase Neg (Negative) Urine WBC (Auto) 8.0 H (0.0-6.0) /HPF Urine RBC (Auto) 101.0 (0.0-6.0) /HPF U Epithel Cells (Auto) 13.0 (0-13.0) /HPF Urine Bacteria (Auto) 1+ (Negative) /HPF Urine Mucus Few /HPF Urine HCG, Qual (Negative) - Radiology Data Radiology results: report reviewed [facility] [address] [place] [address] Cat Scan Report Signed Patient: LISA JENSEN MR#: [id number] : 1980 Acct:[id number] Age/Sex: 39 / F ADM Date: 10/10/19 Loc: ED Attending Dr: Ordering Physician: CHEMA TOWNSEND Date of Service: 10/10/19 Procedure(s): CT abdomen pelvis wo con Accession Number(s): [id number] cc: CHEMA TOWNSEND CT of the abdomen and pelvis without contrast INDICATION: Right flank pain and hematuria COMPARISON: None FINDINGS: Lung bases are clear. The liver, spleen, pancreas, adrenal glands and kidneys all appear normal. No calculi are seen in either kidney. No hydronephrosis or perinephric edema. No gross renal masses. No definite gallbladder or biliary tree abnormality. No fluid or adenopathy in the upper abdomen. CT of the pelvis shows no ureteral stones. No stone fragments seen in the bladder. Appendix is seen and is normal. No uterine or adnexal masses. No pelvic fluid or adenopathy. No diverticulosis or diverticulitis. IMPRESSION: Negative study. No kidney stone or inflammatory process seen. Automated exposure control was utilized to diminish radiation dose. Signer Name: Magdi Pelaez MD Signed: 10/10/2019 3:48 PM Workstation Name: [id number] Transcribed By: RONAL Dictated By: Magdi Pelaez MD Electronically Authenticated By: Magdi Pelaez MD Signed Date/Time: 10/10/191547 DD/ 41 TD/TT: - Medical Decision Making This patient presents with abdominal pain of unclear etiology. A CT scan was performed to evaluate for potential causes of the abdominal pain, however, neither the clinical exam nor the CT has identified an emergent etiology for the abdominal pain. Specifically, given the benign exam, the laboratory studies, and unremarkable CT, I have a very low suspicion for appendicitis, ischemic bowel, bowel perforation, or any other life threatening disease. I have discussed with the patient the level of uncertainty with undifferentiated abdominal pain and clearly explained the need to follow-up as noted on the dis charge instructions, or return to the Emergency Department immediately if the pain worsens, develops fever, persistent and uncontrollable vomiting, or for any new symptoms or concerns. Critical care attestation.: If time is entered above; I have spent that time in minutes in the direct care of this critically ill patient, excluding procedure time. ED Disposition Clinical Impression: Hematuria, Abdominal pain Disposition: DC-01 TO HOME OR SELFCARE Is pt being admited?: No Does the pt Need Aspirin: No Condition: Stable Instructions: Abdominal Pain (ED), Acute Hematuria (ED) Additional Instructions: Your CT scan was normal as was your laboratory data urinalysis did show he maturia at this time unable to locate any urgent or emergent causes for your hematuria please continue to follow-up with your primary care care doctor and the urologist as previously discussed Referrals: VAL BARKER MD [Primary Care Provider] - 3-5 Days
--- NOTE | 2019-10-10 15:52 | Cat Scan Report ---
CT of the abdomen and pelvis without contrast INDICATION: Right flank pain and hematuria COMPARISON: None FINDINGS: Lung bases are clear. The liver, spleen, pancreas, adrenal glands and kidneys all appear no rmal. No calculi are seen in either kidney. No hydronephrosis or perinephric edema. No gross renal ma sses. No definite gallbladder or biliary tree abnormality. No fluid or adenopathy in the upper abdome n. CT of the pelvis shows no ureteral stones. No stone fragments seen in the bladder. Appendix is seen a nd is normal. No uterine or adnexal masses. No pelvic fluid or adenopathy. No diverticulosis or diver ticulitis. IMPRESSION: Negative study. No kidney stone or inflammatory process seen. Automated exposure control was utilized to diminish radiation dose. Signer Name: Magdi Pelaez MD Signed: 10/10/2019 3:48 PM Workstation Name: [id number]
== END 2019-10-10 16:35 | disposition home or self-care (01) ==
LOC: ED 11:47
DX: R31.9 Hematuria, unspecified (principal); R10.9 Unspecified abdominal pain
CPT/HCPCS: 36415; 74176; 80048; 81001; 81025; 85025; 85610